=== PATIENT | male | born 1965 | race Caucasian/White ===

== ENCOUNTER → 2016-07-15 | Outpatient (CLI) | payer OTHER ==
[~2016-07-15] MED LIST: ASPI325T PO; AZEL0.1S3; BREO1INH INH; FLON1SPR; GABA600T PO; LEVA12INH INH; LEVA500T PO; NEXI40CA PO; PRED10TA FT; PRED20TA PO; [UNRECOGNIZED DRUG - CODE] PO
--- NOTE | 2016-07-15 19:02 | REP ---
Clinical: Acute cough. Technique: PA and lateral. Comparison: 01/27/2016. Findings: Mediastinum and cardiac silhouette are normal. Trace bibasilar atelectasis noted suggesting bronchitis. No focal consolidation, effusion, or pneumothorax. Skeletal structures are intact and stable. Impression: Trace basilar atelectasis suggesting bronchitis. No focal consolidation. Signed by Tung Sosa MD 07/15/2016 06:54 P
[2016-07-15 20:24] LABS: BASO % 0.2 % (0.0-1.0); EOS % 0.3 % (0.0-3.0); LARGE UNSTAINED CELL # 0.2 K/mm3 (0.0-0.4); LYMPH # 1.2 K/mm3 (1.5-4.5); LYMPH % 14.4 % (24.0-44.0); MEAN CORPUSCULAR HEMOGLOBIN 29.6 pg (27.0-33.0); MEAN CORPUSCULAR HGB CONC 34.1 g/dl (32.0-36.5); MONO # 0.4 K/mm3 (0.0-0.8); MONO % 4.9 % (0.0-5.0); NEUTROPHILS # 6.3 K/mm3 (1.8-7.7); NEUTROPHILS % 78.2 % (36.0-66.0); PLATELET COUNT, AUTOMATED 218 k/mm3 (150-450); RED CELL DISTRIBUTION WIDTH 12.9 % (11.5-14.5)
== END ==
LOC: M WUC 18:33
PROVIDERS: ATTEND Physician Assistant
DX: J98.11 Atelectasis (principal); R50.9 Fever, unspecified; J20.9 Acute bronchitis, unspecified

== ENCOUNTER 2016-07-17 05:42 | Inpatient (IN) | payer OTHER ==
[~2016-07-17] VITALS: Ht 170.2 cm; Wt 91.0 kg
[2016-07-17] MEDS ORDERED: diphenhydrAMINE INJ 50MG/ML VIAL (J1200) As Ordered ONE (06:44)
[2016-07-17] MEDS ORDERED: dexameTHASONE 4 MG/ML 1ML VIAL (J1100) As Ordered ONE (06:44)
[2016-07-17 07:05] LABS: BASO # 0.2 K/mm3 (0.0-0.2); BASO % 3.2 % (0.0-1.0); EOS % 0.5 % (0.0-3.0); LARGE UNSTAINED CELL # 0.4 K/mm3 (0.0-0.4); LARGE UNSTAINED CELL % 5.3 % (0.0-4.0); LYMPH # 1.1 K/mm3 (1.5-4.5); LYMPH % 10.2 % (24.0-44.0); MEAN CORPUSCULAR HEMOGLOBIN 28.3 pg (27.0-33.0); MEAN CORPUSCULAR HGB CONC 33.5 g/dl (32.0-36.5); MEAN CORPUSCULAR VOLUME 84.6 fl (80.0-96.0); MONO # 0.3 K/mm3 (0.0-0.8); MONO % 4.5 % (0.0-5.0); NEUTROPHILS # 5.2 K/mm3 (1.8-7.7); NEUTROPHILS % 76.3 % (36.0-66.0); PLATELET COUNT, AUTOMATED 295 k/mm3 (150-450); RED CELL DISTRIBUTION WIDTH 13.6 % (11.5-14.5); WHITE BLOOD COUNT 6.9 K/mm3 (4.0-10.0)
[2016-07-17 07:25] LABS: ANION GAP 8 MEQ/L (8-16); BLOOD UREA NITROGEN 15 MG/DL (7-18); CALCIUM LEVEL 9.9 MG/DL (8.5-10.1); CARBON DIOXIDE LEVEL 30 MEQ/L (21-32); CHLORIDE LEVEL 104 MEQ/L (98-107); CREATININE FOR GFR 0.94 MG/DL (0.70-1.30); GLOMERULAR FILTRATION RATE > 60.0 (>56); GLUCOSE, FASTING 135 MG/DL (70-105); POTASSIUM SERUM 4.4 MEQ/L (3.5-5.1); SODIUM LEVEL 142 MEQ/L (136-145)
[2016-07-17] MEDS ORDERED: ISOVUE-370 76% 100ML VIAL (Q9967) As Ordered ONE (07:33)
--- NOTE | 2016-07-17 07:54 | REP ---
Clinical: Cough . Comparison: 07/15/2016 . Technique: PA and lateral. Findings: The mediastinum and cardiac silhouette are normal and stable. The lung aguilera again suggest bibasilar atelectasis (left greater than right) and possible small pleural reactions. No definite effusion. No pneumothorax. Skeletal structures stable. Impression: 1. Chronic changes with suspected bibasilar atelectasis and possible small pleural reaction. Signed by Tung Sosa MD 07/17/2016 07:45 A
--- NOTE | 2016-07-17 08:10 | REPUSA ---
CLINICAL HISTORY: Dyspnea, exclude PE. TECHNIQUE: Multiple incremental axial, coronal and oblique images are obtained from the thoracic inle t to the upper abdomen. Intravenous contrast material was administered as per pulmonary embolism prot ocol. COMMENTS: Groundglass densities of the right upper lobe. Right lower lobe consolidation. Bilateral basilar atelectatic lung changes. There is excellent opacification of pulmonary arterial system without evidence for pulmonary embolism . Aorta is of normal caliber without evidence for dissection or aneurysm. There is no evidence of pleural or parenchymal mass. There are no pleural effusions. There is no evidence of hilar or mediastinal lymphadenopathy. The heart and great vessels are within normal limits. Images of the upper abdomen demonstrate no evidence of adrenal mass. The bony structures are free of lytic or blastic lesions. IMPRESSION: No evidence for pulmonary embolism. Bilateral groundglass densities of the lungs. Bilateral basilar atelectatic pulmonary changes. Right lower lobe consolidation. Thank you for your kind referral of this patient.
[2016-07-17] MEDS ORDERED: cefTRIAXone SOD 1 GM VIAL (J0696) As Ordered ONE (08:34)
[2016-07-17] MEDS ORDERED: AZITHROMYCIN INJ 500MG VIAL (J0456) As Ordered ONE (08:35)
[2016-07-17] MEDS ORDERED: ASPI325T PO (08:50)
[2016-07-17] MEDS ORDERED: LEVA12INH INH (08:50)
[2016-07-17] MEDS ORDERED: FLON1SPR (08:50)
[2016-07-17] MEDS ORDERED: PRED20TA PO (08:50)
[2016-07-17] MEDS ORDERED: NEXI40CA PO (08:50)
[2016-07-17] MEDS ORDERED: GABA600T PO (08:50)
[2016-07-17] MEDS ORDERED: AZEL0.1S3 (08:50)
[2016-07-17] MEDS ORDERED: BREO1INH INH (08:50)
[2016-07-17] MEDS ORDERED: [UNRECOGNIZED DRUG - CODE] PO (08:50)
[2016-07-17] MEDS ORDERED: IPRATROPIUM 0.5MG/ALBUTEROL 2.5MG INH SOL UD 3ML (DUONEB)(J7620) NEB PRN (10:15)
[2016-07-17] MEDS ORDERED: ONDANSETRON 4MG/2ML VIAL (J2405) IV PRN (10:15)
[2016-07-17] MEDS ORDERED: diphenhydrAMINE 25 MG CAP PO PRN (10:30)
[2016-07-17] MEDS ORDERED: ACETAMINOPHEN 325 MG TAB As Ordered ONE (12:39)
--- NOTE | 2016-07-17 13:01 | HPEPDOC ---
General Date of Admission Jul 17, 2016 at 10:06 Chief Complaint The patient is a 51-year-old male admitted with a reason for visit of Community Acquired Pneumonia. Source: Patient Exam Limitations: No limitations History of Present Illness 51-year-old male with past medical history of asthma, GERD, and recent surgery for meniscal tear in the right knee resented to the ER with a chief complaint of shortness of breath and increased cough. The patient states that he had surgery last Tuesday for repair of a meniscal tear in his right knee. Since then , the patient states that he has been feeling increasingly short of breath with a fever of 102. He has tried using Tylenol at home and nebulizer treatments [id number] but this has not improved. In addition he has noted a cough productive of whitish sputum. He denies any chest pain, lightheadedness, dizziness, abdominal pain, nausea/vomiting/diarrhea. He denies any recent travel or sick contacts. In the ER, a chest x-ray was ordered and revealed a possible small pleural reaction. A CTA of the chest was done and this was negative for of pulmonary embolus, however it did reveal a right lower lobe consolidation consistent with possible pneumonia. At this time, the patient is requiring 3 L of oxygen via nasal cannula to maintain an O2 saturation above 90%. The patient will be admitted to the hospitalist service for the diagnosis of community-acquired pneumonia. Home Medications Scheduled (Requip Xl) 4 Mg Tab 4 MG PO BID (Reported) NOON AND BEDTIME (Flonase Allergy Relief) 50 Mcg/Act Spr 2 SPRAYS NA QHS (Reported) Aspirin (Aspirin) 325 Mg Tab 325 MG PO DAILY (Reported) Fluticasone/Vilanterol (Breo Ellipta 100-25 Mcg/INH) 1 Inh Inh 1 PUFF INH DAILY (Reported) Gabapentin (Gabapentin) 600 Mg Tab 600 MG PO BID (Reported) NOON AND BEDTIME Levalbuterol Hydrochloride (Xopenex Concentrate) 1.25 Mg/0.5 Ml Neb 1.25 MG INH TID (Reported) Prednisone (Prednisone) 20 Mg Tab 20 MG PO BID (Reported) Scheduled PRN Azelastine Hydrochloride (Azelastine HCl) 137 Mcg/Freehold Spr 1 SPRAY NA BID PRN PRN ALLERGIES (Reported) Esomeprazole Magnesium Trihydr (Nexium) 40 Mg Cap 40 MG PO DAILY PRN PRN HEARTBURN (Reported) Allergies Coded Allergies: Contrast Media (Unverified Allergy, Severe, FEELS LIKE THROATS CLOSING, ) [place] (Verified Adverse Reaction, Intermediate, THROAT ITCHES , 07/17/16) Past Medical History Medical History As noted in HPI Surgical History Repair of meniscal tear in the right knee. Family History Family History Mother has breast cancer, diabetes mellitus. Father has hypertension. Social History * Smoker: non-smoker Alcohol: occationally Drugs: denies Recent Travel/Sick Contacts: Denies: Recent sick contacts, Recent travel Social History Works as a scheduling administrator. Review of Symptoms Constitutional: Reports: Chills, Fever, Malaise Eyes: Denies: Pain, Vision change ENT: Denies: Ear Pain, Head Aches Skin: Denies: Lesions, Rash Pulmonary: Reports: Cough, Dyspnea Cardiovascular: Denies: Chest Pain, Orthopnea, Palpitations Gastrointestinal: Denies: Abdominal Pain, Nausea, Vomiting Genitourinary: Denies: Dysuria, Frequency Hematologic: Denies: Bleeding Excessively, Bruising Neurological: Denies: Numbness, Weakness Physical Examination General Exam: Positive: Alert, Cooperative, No Acute Distress ENT Exam: Positive: Atraumatic, Mucous membr. moist/pink Chest Exam: Positive: Diminished, Negative: Rales, Rhonchi Heart Exam: Positive: Normal S1, Normal S2, Rate Normal Telemetry: Positive: Sinus Abdomen Exam: Positive: Soft, Negative: Tenderness Extremity Exam: Negative: Edema, Tenderness Vital Signs As listed in EMR Laboratory Data Labs 24H Laboratory Tests 2 07/17/16 06:53: Anion Gap 8, Blood Urea Nitrogen 15, Creatinine 0.94, Sodium Level 142, Potassium Level 4.4, Chloride Level 104, Carbon Dioxide Level 30, Calcium Level 9.9, Creatine Kinase MB 1.2, Creatine Kinase MB Relative Index 0.85, Glomerular Filtration Rate > 60.0, Total Creatine Kinase 140, Troponin I < 0.02 07/17/16 06:54: White Blood Count 6.9, Red Blood Count 5.89, Hemoglobin 16.7, Hematocrit 49.9, Mean Corpuscular Volume 84.6, Mean Corpuscular Hemoglobin 28.3, Mean Corpuscular Hemoglobin Concent 33.5, Red Cell Distribution Width 13.6, Platelet Count 295, Neutrophils (%) (Auto) 76.3H, Lymphocytes (%) (Auto) 10.2L, Monocytes (%) (Auto) 4.5, Eosinophils (%) (Auto) 0.5, Basophils (%) (Auto) 3.2H , Neutrophils # (Auto) 5.2, Lymphocytes # (Auto) 1.1L, Monocytes # (Auto) 0.3, Eosinophils # (Auto) 0.0, Basophils # (Auto) 0.2, Large Unclassified Cells # 0.4 , Large Unclassified Cells % 5.3H 07/17/16 08:41: Lactic Acid Level 1.4 CBC/BMP Laboratory Tests 07/17/16 06:53 Calcium Level 9.9 07/17/16 06:54 Red Blood Count 5.89, Mean Corpuscular Volume 84.6, Mean Corpuscular Hemoglobin 28.3, Mean Corpuscular Hemoglobin Concent 33.5, Red Cell Distribution Width 13.6 , Neutrophils (%) (Auto) 76.3 H, Lymphocytes (%) (Auto) 10.2 L, Monocytes (%) ( Auto) 4.5, Eosinophils (%) (Auto) 0.5, Basophils (%) (Auto) 3.2 H, Neutrophils # (Auto) 5.2, Lymphocytes # (Auto) 1.1 L, Monocytes # (Auto) 0.3, Eosinophils # (Auto) 0.0, Basophils # (Auto) 0.2 Microbiology Microbiology 07/17/16 Blood Culture, Received Pending 07/17/16 Blood Culture, Received Pending (1) Community acquired pneumonia Status: Acute Response to Treatment: Stable Assessment & Plan: CTA chest notable for right lower lobe consolidation, negative for PE Blood cultures, sputum culture ordered Afebrile, with a normal white blood cell count here in the ER The patient is requiring 3 L of oxygen via nasal cannula to maintain O2 greater than 90%-we will down titrate this as tolerated Rocephin and azithromycin ordered We will continue to monitor the patient's respiratory status (2) Asthma Status: Acute Response to Treatment: Stable Assessment & Plan: No Active wheezing noted at this time Patient does have some cough associated with deep breathing, and does have some signs of bronchospasms with diminished air movement Status post methylprednisolone 125 mg in the ER We will start the patient on 40 mg of prednisone by mouth Nebulizer treatments every 6 hours (3) Right knee meniscal tear Status: Chronic Response to Treatment: Stable Assessment & Plan: Patient did have surgery done this past Tuesday. We will put him on Lovenox 40 mg subcutaneous for DVT prophylaxis (4) GERD (gastroesophageal reflux disease) Status: Chronic Response to Treatment: Stable Assessment & Plan: Continue PPI (5) Hypoxia Status: Acute Assessment & Plan: Patient requiring 3 L of oxygen via nasal cannula due to community-acquired pneumonia, asthma exacerbation We will continue to down titrate as tolerated. Plan / VTE VTE Prophylaxis Ordered?: Yes CANDELARIO SOUTH MD Jul 17, 2016 13:01
[2016-07-17] MEDS ORDERED: rOPINIRole 1MG TAB PO ONE (13:15)
[2016-07-17] MEDS ORDERED: IPRATROPIUM 0.5MG/ALBUTEROL 2.5MG INH SOL UD 3ML (DUONEB)(J7620) As Ordered ONE (13:18)
[2016-07-17] MEDS: IPRATROPIUM 0.5MG/ALBUTEROL 2.5MG INH SOL UD 3ML (DUONEB)(J7620) NEB SCH ×2 (13:37→19:57)
--- NOTE | 2016-07-17 14:03 | EDDOCDS ---
Nurse's Notes [facility] Name: Richmond Muir Age: 51 yrs Sex: Male : 1965 Arrival Date: 07/17/2016 Time: 05:42 Bed 8 Private MD: Diagnosis: Pneumonia due to other specified bacteria Presentation: 07/17 05:47 Presenting complaint: Patient states: SOB, cough starting Tuesday with fevers, af2 dizziness with coughing, tightening of chest with deep breaths. Adult Sepsis Screening: The patient does not have new or worsening altered mentation. Patient's respiratory rate is less than 22. Systolic blood pressure is greater than 100. Patient has a qSOFA score of 0- Negative Sepsis Screen. Suicide/Homicide risk assessment- the patient denies having any suicidal and/or homicidal ideations and does not present with any other emotional, behavioral or mental health complaints. Status: Patient is not a multicultural services librarian or dependent. Transition of care: patient was not received from another setting of care. 05:47 Acuity: TI Level 3 af2 05:47 Method Of Arrival: Walkin/Carried/Asstd af2 Triage Assessment: 05:53 General: Appears in no apparent distress, Behavior is cooperative. Pain: Denies pain. af2 Pt Declines HIV testing. Respiratory: Airway is patent Respiratory effort is even, unlabored, Reports shortness of breath cough that is. Historical: - Allergies: IVP dye; - Home Meds: 1. aspirin 325 mg Oral tab 1 tab once daily 2. Requip 4 mg Oral tab 1 tab twice a day 3. gabapentin 600 mg Oral tab twice a day 4. Breo daily 5. Xopenex 1.25 mg/3 mL Nebulizer nebu 3 mL 3 times per day 6. prednisone 20 mg Oral tab 1 tab 2 times per day - PMHx: Restless Leg Syndrome; Sleep Apnea w/ CPAP; Hypercholesterolemia; - PSHx: Cystectomy; Hernia repair; foot surg left heel; Right Meniscus; - Social history: Smoking status: Patient states was never smoker of tobacco. No barriers to communication noted, The patient speaks fluent [place]. - Family history: Not pertinent. - : The pt / caregiver states he / she is not on anticoagulants. Home medication list is obtained from the patient. - Exposure Risk Screening:: None identified. Screenin:22 Screening information is obtained from the patient. Fall risk: No risks identified. jp6 Assistance ADL's: requires no assistance with activities of daily living. Abuse/DV Screen: The patient / caregiver reports he/she is: not in a situation that causes fear, pain or injury. Nutritional screening: No deficits noted. Advance Directives: Currently, there is no health care proxy. There is no active DNR order. There is no living will. home support is adequate. Assessment: 06:22 General: Appears in no apparent distress, uncomfortable, well developed, well jp6 nourished, Behavior is appropriate for age, cooperative. Pain: Location: chest Pain currently is 5 out of 10 on a pain scale. Quality of pain is described as aching. Neurological: Level of Consciousness is awake, alert, Oriented to person, place, time. EENT: No deficits noted. Cardiovascular: No deficits noted. Capillary refill < 3 seconds Heart tones S1 S2 present. Respiratory: Airway is patent Respiratory effort is even, unlabored, Respiratory pattern is regular, symmetrical, Breath sounds are clear bilaterally. pt c/o coughing and tightness in chest w/ coughing. GI: No deficits noted. : No deficits noted. Derm: Skin is pale. Musculoskeletal: No deficits noted. 07:32 General: Appears in no apparent distress, comfortable, Behavior is appropriate for age, po cooperative, pleasant. Pain: Location: chest Pain currently is 0 out of 10 on a pain scale. At worst was 4 out of 10 on a pain scale. Quality of pain is described as tightness Is intermittent Aggravated by coughing and deep breathing. Neurological: Level of Consciousness is awake, alert, Oriented to person, place, time. Cardiovascular: Heart tones S1 S2 present Rhythm is regular. Respiratory: Airway is patent Respiratory effort is even, unlabored, Breath sounds are clear bilaterally. Reports pain with cough pain with respiration. GI: No deficits noted. Derm: Skin is intact, is healthy with good turgor, Skin is pink, warm & dry. 07:32 Adult Sepsis Screening: The patient does not have new or worsening altered mentation. po Patient's respiratory rate is less than 22. Systolic blood pressure is greater than 100. Patient has a qSOFA score of 0- Negative Sepsis Screen. 08:25 General: Appears in no apparent distress, comfortable, Behavior is appropriate for age, po cooperative, pleasant. Pain: Pain currently is 0 out of 10 on a pain scale. At worst was 4 out of 10 on a pain scale. Neurological: No deficits noted. Cardiovascular: Rhythm is sinus rhythm. Respiratory: Airway is patent Respiratory effort is even, unlabored, Reports pain with cough pain with respiration. Derm: Skin is pink, warm & dry. 09:35 General: Appears in no apparent distress, comfortable, Behavior is appropriate for age, po cooperative, pleasant. Pain: Denies pain. Neurological: No deficits noted. Respiratory: Airway is patent Respiratory effort is even, unlabored, Breath sounds are clear bilaterally. Reports pain with cough pain with respiration. Derm: Skin is intact, is healthy with good turgor, Skin is pink, warm & dry. 09:35 Adult Sepsis Screening: The patient does not have new or worsening altered mentation. po Patient's respiratory rate is less than 22. Systolic blood pressure is greater than 100. Patient has a qSOFA score of 0- Negative Sepsis Screen. 10:36 General: Appears in no apparent distress, comfortable, Behavior is appropriate for age, po cooperative, pleasant. Pain: Denies pain. Neurological: No deficits noted. Respiratory: Airway is patent Respiratory effort is even, unlabored, Breath sounds are clear bilaterally. GI: No deficits noted. Derm: Skin is pink, warm & dry. 11:32 General: Appears in no apparent distress, comfortable, Behavior is appropriate for age, po cooperative, pleasant. Pain: Denies pain. Neurological: No deficits noted. Cardiovascular: Rhythm is sinus rhythm. Cardiovascular: Rhythm is sinus rhythm. Respiratory: Airway is patent Respiratory effort is even, unlabored. Derm: Skin is pink, warm & dry. 11:32 Adult Sepsis Screening: The patient does not have new or worsening altered mentation. po Patient's respiratory rate is less than 22. Systolic blood pressure is greater than 100. Patient has a qSOFA score of 0- Negative Sepsis Screen. 12:25 General: Appears in no apparent distress, comfortable, Behavior is appropriate for age, po cooperative, pleasant. Pain: Denies pain. Neurological: No deficits noted. Respiratory: Airway is patent Respiratory effort is even, unlabored. Derm: Skin is pink, warm & dry. 13:26 General: Appears in no apparent distress, comfortable, Behavior is appropriate for age, po cooperative, pleasant. Pain: Denies pain. Neurological: Level of Consciousness is awake, alert, Oriented to person, place, time. Cardiovascular: Rhythm is sinus rhythm. Respiratory: Airway is patent Respiratory effort is even, unlabored, Breath sounds are clear bilaterally. Reports pain with cough pain with respiration. Derm: Skin is pink, warm & dry. 13:26 Adult Sepsis Screening: The patient does not have new or worsening altered mentation. po Patient's respiratory rate is less than 22. Systolic blood pressure is greater than 100. Patient has a qSOFA score of 0- Negative Sepsis Screen. 13:53 General: Appears in no apparent distress, comfortable, Behavior is appropriate for age, po cooperative, pleasant. Pain: Denies pain. Neurological: No deficits noted. Cardiovascular: Rhythm is sinus rhythm. Respiratory: Airway is patent Respiratory effort is even, unlabored. GI: No deficits noted. Derm: Skin is intact, is healthy with good turgor, Skin is pink, warm & dry. Vital Signs: 05:46 BP 169 / 99 RA Sitting; Pulse 102; Resp 18 S; Temp 96.9(O); Pulse Ox 93% on R/A; Weight af2 90.72 kg (R); Height 5 ft. 7 in. (170.18 cm) (R); 06:56 BP 143 / 102; Pulse 90; Resp 18; Pulse Ox 91% on R/A; Pain 2/10; jp6 07:19 BP 148 / 101 (auto/); po 07:20 Pulse 92 MON; Resp 20; Pulse Ox 92% on 2 lpm NC; po 08:19 BP 139 / 92 (auto/); po 08:19 Pulse 90 MON; Resp 20; Pulse Ox 91% on 2 lpm NC; Pain 0/10; po 09:19 BP 127 / 94 (auto/); po 09:19 Pulse 82 MON; Resp 18; Pulse Ox 91% on 2 lpm NC; Pain 0/10; po 11:19 BP 147 / 92 (auto/); rs3 11:19 Pulse 80 MON; Pulse Ox 91% ; rs3 11:48 BP 142 / 96 (auto/); rs3 11:49 Pulse 80 MON; Pulse Ox 91% ; rs3 12:03 BP 121 / 86 (auto/); po 12:04 Pulse 84 MON; Pulse Ox 89% ; po 12:18 BP 131 / 87 (auto/); rs3 12:20 Pulse 84 MON; Pulse Ox 90% ; rs3 12:33 BP 127 / 85 (auto/); rs3 12:34 Pulse 84 MON; Pulse Ox 90% ; rs3 12:48 BP 125 / 76 (auto/); rs3 12:49 BP 125 / 76; Pulse 86 MON; Resp 18; Pulse Ox 92% on R/A; Pain 0/10; rs3 13:18 BP 143 / 91 (auto/); po 13:19 Pulse 90 MON; Pulse Ox 89% ; po 13:51 BP 146 / 88; Pulse 94 MON; Resp 18; Temp 96.9(O); Pulse Ox 93% on 2 lpm NC; Pain 0/10; po 05:46 Body Mass Index 31.32 (90.72 kg, 170.18 cm) af2 Vitals: 05:46 Log In Time: July 17, 2016 at 05:44. af2 ED Course: 05:44 Patient visited by Qi Pappas Reg. hs2 05:44 Patient moved to Waiting hs2 05:49 Triage Initiated af2 05:53 Patient visited by Keyla Ojeda RN. af2 05:53 Patient moved to 8 af2 06:06 Cristian Tafoya DO is Attending Physician. cs11 06:06 Patient visited by Cristian Tafoya DO. cs11 06:14 Viktoriya Galarza RN is Primary Nurse. jp6 06:14 Patient visited by Viktoriya Galarza RN. jp6 06:22 The patient / caregiver is instructed regarding the plan of care and ED course. jp6 06:23 [facility] [place] Agreement was scanned into [employer] and attached to record. pm4 06:55 Inserted saline lock: 18 gauge in right antecubital area and blood collected. Labs jp6 drawn. (by ED staff). Sent per order to lab. 06:59 Attending Physician role handed off by Cristian Tafoya DO sd1 06:59 Merced Trejo MD is Attending Physician. sd1 07:09 Primary Nurse role handed off by Viktoriya Galarza,EVY deg 07:20 Placed in gown. Bed in low position. Call light in reach. Side rails up X 1. po 07:20 IV is patent, is intact, is free of redness or swelling. po 07:28 Jamal Moran,RN is Primary Nurse. po 07:37 Patient visited by Jamal Moran,EVY. po 07:58 EKG done. (by ED staff). Reviewed by Merced Trejo MD. jrd 08:05 Chest, 2 View (pa\E\lat) Returned. EDMS 08:08 Patient visited by John Mercado PCA. jrd 08:43 Lactic Acid (Yuan tube on ice) Sent. jrd 08:43 -Blood Culture Sent. jrd 08:46 CT Chest Angio R/O PE Returned. EDMS 09:15 Tavo Santos is Hospitalizing Provider. sd1 10:04 Patient visited by Jamal Moran,EVY. po 10:38 T-Sheet-- Draft Copy was scanned into [employer] and attached to record. seh 13:19 Patient visited by Yamilex Brown RN. rs3 13:33 Patient visited by Jamal Moran,EVY. po 13:51 Pt visited by . po 13:51 IV is patent, is intact, is free of redness or swelling. with fluids infusing freely. po No procedures done that require assistance. 13:56 Patient visited by Jamal Moran RN. po Administered Medications: 06:55 Drug: diphenhydrAMINE 25 mg [diphenhydramine 50 mg/mL injection solution (0.5 mL)] jp6 Route: IVP; Site: right antecubital; 06:55 Drug: Dexamethasone 6 mg [dexamethasone 4 mg/mL injection solution] Route: IV; Rate: jp6 bolus; Site: right antecubital; 08:59 Drug: NS 0.9% 1000 ml [sodium chloride 0.9 % injection solution] Route: IV; Rate: 150 po mL/hr; Site: right antecubital; 13:51 Follow up: IV Status: Infusion continued upon admit; IV Intake: 500ml po 08:59 Drug: cefTRIAXone 1 grams [ceftriaxone 1 gram solution for injection] Route: IVPB; po Infused Over: 30 mins; Site: right antecubital; 09:34 Follow up: IV Status: Completed infusion; IV Intake: 50ml po 09:34 Drug: azithromycin 500 mg [azithromycin 500 mg intravenous solution] Route: IVPB; po Infused Over: 1 hrs; Site: right antecubital; 10:36 Follow up: IV Status: Completed infusion; IV Intake: 250ml po 13:02 Not Given (Duplicate Order): Requip 4 mg PO now rs3 13:05 Drug: Acetaminophen 650 mg [acetaminophen 325 mg tablet (2 tabs)] Route: PO; rs3 13:19 Drug: Gabapentin 600 mg [gabapentin 100 mg capsule (6 caps)] Route: PO; rs3 13:19 Drug: Requip 2.5 mg Route: PO; rs3 Intake: 09:34 IV: 50.00ml; Total: 50.00ml. po 10:36 IV: 250.00ml; Total: 300.00ml. po 13:51 IV: 500.00ml; Total: 800.00ml. po Order Results: Lab Order: CBC with Diff; SPEC'M 07/17/16 06:54 Test: WHITE BLOOD COUNT; Value: 6.9; Range: 4.0-10.0; Units: K/mm3; Status: F Test: RED BLOOD COUNT; Value: 5.89; Range: 4.30-6.10; Units: M/mm3; Status: F Test: HEMOGLOBIN; Value: 16.7; Range: 14.0-18.0; Units: g/dl; Status: F Test: HEMATOCRIT; Value: 49.9; Range: 42.0-52.0; Units: %; Status: F Test: MEAN CORPUSCULAR VOLUME; Value: 84.6; Range: 80.0-96.0; Units: fl; Status: F Test: MEAN CORPUSCULAR HEMOGLOBIN; Value: 28.3; Range: 27.0-33.0; Units: pg; Status: F Test: MEAN CORPUSCULAR HGB CONC; Value: 33.5; Range: 32.0-36.5; Units: g/dl; Status: F Test: RED CELL DISTRIBUTION WIDTH; Value: 13.6; Range: 11.5-14.5; Units: %; Status: F Test: PLATELET COUNT, AUTOMATED; Value: 295; Range: 150-450; Units: k/mm3; Status: F Test: NEUTROPHILS %; Value: 76.3; Range: 36.0-66.0; Abnormal: Above high normal; Units: %; Status: F Test: LYMPH %; Value: 10.2; Range: 24.0-44.0; Abnormal: Below low normal; Units: %; Status: F Test: MONO %; Value: 4.5; Range: 0.0-5.0; Units: %; Status: F Test: EOS %; Value: 0.5; Range: 0.0-3.0; Units: %; Status: F Test: BASO %; Value: 3.2; Range: 0.0-1.0; Abnormal: Above high normal; Units: %; Status: F Test: LARGE UNSTAINED CELL %; Value: 5.3; Range: 0.0-4.0; Abnormal: Above high normal; Units: %; Status: F Test: NEUTROPHILS #; Value: 5.2; Range: 1.8-7.7; Units: K/mm3; Status: F Test: LYMPH #; Value: 1.1; Range: 1.5-4.5; Abnormal: Below low normal; Units: K/mm3; Status: F Test: MONO #; Value: 0.3; Range: 0.0-0.8; Units: K/mm3; Status: F Test: EOS #; Value: 0.0; Range: 0.0-0.50; Units: K/mm3; Status: F Test: BASO #; Value: 0.2; Range: 0.0-0.2; Units: K/mm3; Status: F Test: LARGE UNSTAINED CELL #; Value: 0.4; Range: 0.0-0.4; Units: K/mm3; Status: F Lab Order: [facility]; [facility]' 07/17/16 06:53 Test: GLUCOSE, FASTING; Value: 135; Range: 70-105; Abnormal: Above high normal; Units: MG/DL; Status: F Test: BLOOD UREA NITROGEN; Value: 15; Range: 7-18; Units: MG/DL; Status: F Test: CREATININE FOR GFR; Value: 0.94; Range: 0.70-1.30; Units: MG/DL; Status: F Test: GLOMERULAR FILTRATION RATE; Value: > 60.0; Range: >56; Status: F Test: SODIUM LEVEL; Value: 142; Range: 136-145; Units: MEQ/L; Status: F Test: POTASSIUM SERUM; Value: 4.4; Range: 3.5-5.1; Units: MEQ/L; Status: F Test: CHLORIDE LEVEL; Value: 104; Range: 98-107; Units: MEQ/L; Status: F Test: CARBON DIOXIDE LEVEL; Value: 30; Range: 21-32; Units: MEQ/L; Status: F Test: ANION GAP; Value: 8; Range: 8-16; Units: MEQ/L; Status: F Test: CALCIUM LEVEL; Value: 9.9; Range: 8.5-10.1; Units: MG/DL; Status: F Test Note: ; Units are mL/min/1.73 m2 Chronic Kidney Disease Staging per NKF: Stage I & II GFR >=60 Normal to Mildly Decreased Stage III GFR 30-59 Moderately Decreased Stage IV GFR 15-29 Severely Decreased Stage V GFR <15 Very Little GFR Left ESRD GFR <15 on GROVE SUPERINTENDENT Lab Order: CIP; SPEC'M 07/17/16 06:53 Test: CPK CREATINE PHOSPHOKINASE; Value: 140; Range: 39-308; Units: U/L; Status: F Test: CK-MB VALUE MASS; Value: 1.2; Range: 0.0-3.6; Units: NG/ML; Status: F Test: MB/CK RELATIVE INDEX; Value: 0.85; Range: < OR =4; Status: F Test Note: ; DIAGNOSIS CRITERIA MMB ng/ml Relative Index (RI) NON-AMI < or = 5 N/A YUAN ZONE > 5 < or = 4 AMI > 5 > 4 Lab Order: Troponin; SPEC'M 07/17/16 06:53 Test: TROPONIN I; Value: < 0.02; Range: < 0.10; Units: NG/ML; Status: F Test Note: ; Troponin I Reference Interval for [employer] LOCI: 99th Percentile= 0.00-0.045 ng/ml Risk Stratification: <= 0.10 ng/ml Decreased Risk for Adverse Clinical Events. 0.10-1.50 ng/ml Increased Risk for Adverse Clinical Events. Evaluation of additional criterion and/or repeat testing in 2-6 hours is suggested to rule out myocardial damage. >= 1.50 ng/ml Indicative of Myocardial Injury. Lab Order: Lactic Acid (Yuan tube on ice); SPEC'M 07/17/16 08:41 Test: LACTIC ACID LEVEL, LACTATE; Value: 1.4; Range: 0.4-2.0; Units: MMOL/L; Status: F Radiology Order: Chest, 2 View (pa\E\lat) Test: Chest, 2 View (pa\E\lat) REASON FOR EXAMINATION: Cough; Clinical: Cough .; ; Comparison: 07/15/2016 .; ; Technique: PA and lateral.; ; Findings:; The mediastinum and cardiac silhouette are normal and stable. The lung aguilera; again suggest bibasilar atelectasis (left greater than right) and possible small; pleural reactions. No definite effusion. No pneumothorax. Skeletal structures; stable.; ; Impression:; 1. Chronic changes with suspected bibasilar atelectasis and possible small; pleural reaction.; ; ; Signed by; Tung Sosa MD 07/17/2016 07:45 A; Radiology Order: CT Chest Angio R/O PE Test: CT Chest Angio R/O PE REASON FOR EXAMINATION: Shortness of Breath; ; CLINICAL HISTORY: Dyspnea, exclude PE.; TECHNIQUE: Multiple incremental axial, coronal and oblique images are obtained from the thoracic inle; t to the upper abdomen. Intravenous contrast material was administered as per pulmonary embolism prot; ocol.; COMMENTS:; Groundglass densities of the right upper lobe.; Right lower lobe consolidation.; Bilateral basilar atelectatic lung changes.; There is excellent opacification of pulmonary arterial system without evidence for pulmonary embolism; . Aorta is of normal caliber without evidence for dissection or aneurysm.; There is no evidence of pleural or parenchymal mass.; There are no pleural effusions.; There is no evidence of hilar or mediastinal lymphadenopathy.; The heart and great vessels are within normal limits.; Images of the upper abdomen demonstrate no evidence of adrenal mass.; The bony structures are free of lytic or blastic lesions.; IMPRESSION:; No evidence for pulmonary embolism.; Bilateral groundglass densities of the lungs.; Bilateral basilar atelectatic pulmonary changes.; Right lower lobe consolidation.; Thank you for your kind referral of this patient.; ; Outcome: 09:15 Decision to Hospitalize by Provider. sd1 13:51 Discharge Assessment: patient administered narcotics - no. The following High Risk po Discharge criteria are identified: None. Admitted to Med/Surg accompanied by tech, family with patient, via stretcher, with oxygen, with chart. Condition: stable. CT Study completed. Property :Personal belongings accompany Pt. 14:02 Patient left the ED. po Signatures: Dispatcher [employer] EDMS Merced Trejo MD MD sd1 Jennifer Srinivasan, Band Attacher Unit deg Jamal Moarn RN RN po Soosairaj, Rosemary, RN RN rs3 Cristian Tafoya, DO DO cs11 John Mercado, MACHINE SPREADER MACHINE SPREADER Keyla AndersonRN RN af2 Qi Pappas, Reg Reg hs2 Viktoriya Galarza,RN RN jp6 Merced Reagan Paul, Reg Reg pm4 CATRACHITA
--- NOTE | 2016-07-17 14:03 | EDDOCDS ---
Physician Documentation [facility] Name: Richmond Muir Age: 51 yrs Sex: Male : 1965 Arrival Date: 07/17/2016 Time: 05:42 Bed 8 Private MD: Disposition: 07/17/16 09:15 Hospitalization ordered by Tavo Santos for Inpatient Admission. Preliminary diagnosis is Pneumonia due to other specified bacteria. - Bed requested for 4 Kenneth. - Status is Inpatient Admission. po - Condition is Stable. - Problem is new. - Symptoms are unchanged. Historical: - Allergies: IVP dye; - Home Meds: 1. aspirin 325 mg Oral tab 1 tab once daily 2. Requip 4 mg Oral tab 1 tab twice a day 3. gabapentin 600 mg Oral tab twice a day 4. Breo daily 5. Xopenex 1.25 mg/3 mL Nebulizer nebu 3 mL 3 times per day 6. prednisone 20 mg Oral tab 1 tab 2 times per day - PMHx: Restless Leg Syndrome; Sleep Apnea w/ CPAP; Hypercholesterolemia; - PSHx: Cystectomy; Hernia repair; foot surg left heel; Right Meniscus; - Social history: Smoking status: Patient states was never smoker of tobacco. No barriers to communication noted, The patient speaks fluent Thai. - Family history: Not pertinent. - : The pt / caregiver states he / she is not on anticoagulants. Home medication list is obtained from the patient. - Exposure Risk Screening:: None identified. Vital Signs: 07/17 05:46 BP 169 / 99 RA Sitting; Pulse 102; Resp 18 S; Temp 96.9(O); Pulse Ox 93% on R/A; Weight af2 90.72 kg / 200 lbs (R); Height 5 ft. 7 in. (170.18 cm) (R); 06:56 BP 143 / 102; Pulse 90; Resp 18; Pulse Ox 91% on R/A; Pain 2/10; jp6 07:19 BP 148 / 101 (auto/); po 07:20 Pulse 92 MON; Resp 20; Pulse Ox 92% on 2 lpm NC; po 08:19 BP 139 / 92 (auto/); po 08:19 Pulse 90 MON; Resp 20; Pulse Ox 91% on 2 lpm NC; Pain 0/10; po 09:19 BP 127 / 94 (auto/); po 09:19 Pulse 82 MON; Resp 18; Pulse Ox 91% on 2 lpm NC; Pain 0/10; po 11:19 BP 147 / 92 (auto/); rs3 11:19 Pulse 80 MON; Pulse Ox 91% ; rs3 11:48 BP 142 / 96 (auto/); rs3 11:49 Pulse 80 MON; Pulse Ox 91% ; rs3 12:03 BP 121 / 86 (auto/); po 12:04 Pulse 84 MON; Pulse Ox 89% ; po 12:18 BP 131 / 87 (auto/); rs3 12:20 Pulse 84 MON; Pulse Ox 90% ; rs3 12:33 BP 127 / 85 (auto/); rs3 12:34 Pulse 84 MON; Pulse Ox 90% ; rs3 12:48 BP 125 / 76 (auto/); rs3 12:49 BP 125 / 76; Pulse 86 MON; Resp 18; Pulse Ox 92% on R/A; Pain 0/10; rs3 13:18 BP 143 / 91 (auto/); po 13:19 Pulse 90 MON; Pulse Ox 89% ; po 13:51 BP 146 / 88; Pulse 94 MON; Resp 18; Temp 96.9(O); Pulse Ox 93% on 2 lpm NC; Pain 0/10; po 05:46 Body Mass Index 31.32 (90.72 kg, 170.18 cm) af2 MDM: 06:07 Chest, 2 View (pa\E\lat) Ordered. EDMS 06:17 IV Saline Lock ordered. cs11 06:18 CBC with Diff Ordered. EDMS 06:18 MED Profile Ordered. EDMS 06:19 CT Chest Angio R/O PE Ordered. EDMS 06:21 Financial registration complete. pm4 06:[address] [facility] Payment Agreement was scanned into [employer] ??? and attached to record. pm4 06:39 diphenhydrAMINE 25 mg IVP once ordered. cs11 06:39 Dexamethasone 6 mg IV at bolus once ordered. cs11 07:31 CBC with Diff Reviewed. sd1 07:31 MED Profile Reviewed. sd1 07:32 ECG WITH READING ER PHYS+CARDIAG ordered. EDMS 07:32 CIP Ordered. EDMS 07:32 Troponin Ordered. EDMS 08:16 CIP Reviewed. sd1 08:16 Troponin Reviewed. sd1 08:16 Chest, 2 View (pa\E\lat) Reviewed. sd1 08:22 -Blood Culture (Adults Only), peripheral from different site, or from device/port/PICC sd1 etc. if present ordered. 08:22 -Blood Culture Ordered. EDMS 08:23 Lactic Acid (Yuan tube on ice) Ordered. EDMS 08:24 BED REQUEST+ADM ordered. EDMS 08:24 NS 0.9% 1000 ml IV at 150 mL/hr continuous ordered. sd1 08:24 cefTRIAXone 1 grams IVPB once over 30 mins; dilute in 50mL of NS or D5W ordered. sd1 08:24 azithromycin 500 mg IVPB once over 1 hrs; dilute in 250mL of D5W or NS ordered. sd1 08:26 -Blood Culture (Adults Only), peripheral from different site, or from device/port/PICC deg etc. if present complete. 08:27 BLOOD CULTURES Ordered. EDMS 10:19 SPUTUM CULTURE AND GRAM STAIN Ordered. EDMS 10:21 Admission / Observation Status ordered. EDMS 10:21 REGULAR DIET ordered. EDMS 10:38 T-Sheet-- Draft Copy was scanned into [employer] ??? and attached to record. seh 12:46 Requip 4 mg PO now ordered. rs3 12:46 Gabapentin 600 mg PO once ordered. rs3 13:04 Acetaminophen Tablet 650 mg PO once ordered. rs3 13:04 Requip 2.5 mg PO now ordered. rs3 Administered Medications: 06:55 Drug: diphenhydrAMINE 25 mg [diphenhydramine 50 mg/mL injection solution (0.5 mL)] jp6 Route: IVP; Site: right antecubital; 06:55 Drug: Dexamethasone 6 mg [dexamethasone 4 mg/mL injection solution] Route: IV; Rate: jp6 bolus; Site: right antecubital; 08:59 Drug: NS 0.9% 1000 ml [sodium chloride 0.9 % injection solution] Route: IV; Rate: 150 po mL/hr; Site: right antecubital; 13:51 Follow up: IV Status: Infusion continued upon admit; IV Intake: 500ml po 08:59 Drug: cefTRIAXone 1 grams [ceftriaxone 1 gram solution for injection] Route: IVPB; po Infused Over: 30 mins; Site: right antecubital; 09:34 Follow up: IV Status: Completed infusion; IV Intake: 50ml po 09:34 Drug: azithromycin 500 mg [azithromycin 500 mg intravenous solution] Route: IVPB; po Infused Over: 1 hrs; Site: right antecubital; 10:36 Follow up: IV Status: Completed infusion; IV Intake: 250ml po 13:02 Not Given (Duplicate Order): Requip 4 mg PO now rs3 13:05 Drug: Acetaminophen 650 mg [acetaminophen 325 mg tablet (2 tabs)] Route: PO; rs3 13:19 Drug: Gabapentin 600 mg [gabapentin 100 mg capsule (6 caps)] Route: PO; rs3 13:19 Drug: Requip 2.5 mg Route: PO; rs3 Signatures: Dispatcher [employer] EDHI Merced Trejo MD MD sd1 Jennifer Srinivasan, Solid Waste Analyst Unit deg Jamal Moran RN RN po Youngs, David RN EVY dy Yamilex Brown RN RN rs3 Cristian Tafoya, DO cs11 Keyla Ojeda RN RN af2 Viktoriya GalarzaRN RN 6 Merced Reagan Paul, Reg Reg pm4 The chart was reviewed and I authenticate all verbal orders and agree with the evaluation and treatment provided.Attachments: 06:[address] Payment Agreement pm4 10:38 T-Sheet-- Draft Copy [facility] MTDD
[2016-07-17 14:05] VITALS: BP 148/90
[2016-07-17] MEDS: GABAPENTIN 300 MG CAP PO SCH ×2 (14:15→20:17)
[2016-07-17] MEDS: ENOXAPARIN 40 MG/0.4 ML SYRINGE (J1650) SC SCH (14:28)
[2016-07-17] MEDS: PANTOPRAZOLE 40MG TAB (PROTONIX) PO SCH (14:28)
[2016-07-17] MEDS: predniSONE 20 MG TAB PO SCH (14:28)
[2016-07-17] MEDS: FLUTICASONE PROP 0.05% NASAL SPRAY 16 GM (FLONASE) SCH (20:16)
[2016-07-17] MEDS: rOPINIRole 1MG TAB PO SCH (20:17)
[2016-07-17] MEDS: cefTRIAXone SOD 1 GM in D5W MINI-BAG PLUS 50 ML IV SCH (20:18)
[2016-07-17 22:00] VITALS: BP 133/84
[2016-07-17 22:15] VITALS: BP 141/96
[2016-07-18] MEDS: IPRATROPIUM 0.5MG/ALBUTEROL 2.5MG INH SOL UD 3ML (DUONEB)(J7620) NEB SCH ×4 (02:00→19:33)
[2016-07-18 04:00] VITALS: BP 132/89
[2016-07-18] MEDS: ACETAMINOPHEN TAB 650MG DOSE (2X325MG) PO PRN ×2 (06:49→17:48)
[2016-07-18 06:56] LABS: MEAN CORPUSCULAR HEMOGLOBIN 29.2 pg (27.0-33.0); MEAN CORPUSCULAR HGB CONC 33.9 g/dl (32.0-36.5); MEAN CORPUSCULAR VOLUME 86.2 fl (80.0-96.0); RED CELL DISTRIBUTION WIDTH 12.6 % (11.5-14.5); WHITE BLOOD COUNT 11.7 K/mm3 (4.0-10.0)
[2016-07-18 07:15] LABS: ANION GAP 8 MEQ/L (8-16); BLOOD UREA NITROGEN 19 MG/DL (7-18); CALCIUM LEVEL 9.1 MG/DL (8.5-10.1); CARBON DIOXIDE LEVEL 28 MEQ/L (21-32); CHLORIDE LEVEL 106 MEQ/L (98-107); CREATININE FOR GFR 0.93 MG/DL (0.70-1.30); GLOMERULAR FILTRATION RATE > 60.0 (>56); GLUCOSE, FASTING 126 MG/DL (70-105); POTASSIUM SERUM 4.1 MEQ/L (3.5-5.1); SODIUM LEVEL 142 MEQ/L (136-145)
--- NOTE | 2016-07-18 07:21 | ECGEPIP ---
Stationary ECG Study [facility] - ED Test Date: 2016-07-17 Pat Name: NAIMA ROMERO Department: Room: [place] [address] Gender: M Mail Clerk Bills: xavier : 1965 Requested By: Merced Trejo Order Number: [id number] Reading MD: Merced Trejo Measurements Intervals Power Rate: 86 P: 46 VT: 162 QRS: -1 QRSD: 88 T: -6 QT: 334 QTc: 401 Interpretive Statements SINUS RHYTHM MODERATE VOLTAGE CRITERIA FOR LVH, CONSIDER NORMAL VARIANT ?PRIOR INFERIOR INFARCT NO PRIOR FOR COMPARISON Electronically Signed On 07-18-2016 7:21:20 EST by Merced Trejo
[2016-07-18 08:00] VITALS: BP 133/88
[2016-07-18] MEDS: cefTRIAXone SOD 1 GM in D5W MINI-BAG PLUS 50 ML IV SCH ×2 (08:33→20:56)
[2016-07-18] MEDS: PANTOPRAZOLE 40MG TAB (PROTONIX) PO SCH (08:33)
[2016-07-18] MEDS: predniSONE 20 MG TAB PO SCH (08:34)
[2016-07-18] MEDS: rOPINIRole 1MG TAB PO SCH ×3 (08:34→20:55)
[2016-07-18] MEDS: ENOXAPARIN 40 MG/0.4 ML SYRINGE (J1650) SC SCH (08:35)
[2016-07-18] MEDS ORDERED: AZITHROMYCIN 500 MG, VIAL MATE ADAPTER 1 EACH in D5W 250 ML IV SCH (10:00)
--- NOTE | 2016-07-18 11:56 | IPNPDOC ---
Assessment/Plan Date Seen The patient was seen on 07/18/16. Problems Problems: (1) Community acquired pneumonia Status: Acute Response to Treatment: Improving Problem Text: CTA chest notable for right lower lobe consolidation, negative for PE Blood cultures unrevealing thus far, sputum culture pending Afebrile, with a normal white blood cell count Supplemental oxygen down titrated from 3 L via nasal cannula to 1 L this morning -we will attempt to taper the patient off altogether Continue Rocephin and azithromycin We will continue to monitor the patient's respiratory status (2) Asthma Status: Acute Response to Treatment: Improving Problem Text: No Active wheezing noted at this time Patient on 40 mg of prednisone by mouth Nebulizer treatments every 6 hours Respiratory status improved today, patient able to take a deep breath without coughing-less bronchospastic with better air movement on exam (3) Right knee meniscal tear Status: Chronic Response to Treatment: Stable Problem Text: Patient did have surgery done this past Tuesday. We will put him on Lovenox 40 mg subcutaneous for DVT prophylaxis (4) GERD (gastroesophageal reflux disease) Status: Chronic Response to Treatment: Stable Problem Text: Continue PPI (5) Hypoxia Status: Acute Response to Treatment: Improving Problem Text: Patient down to 1 L of oxygen via nasal cannula-previously was on 3 L Plan / VTE VTE Prophylaxis Ordered?: Yes Subjective Review of Systems CC/HPI The patient is a 51-year-old male admitted with a reason for visit of Community Acquired Pneumonia. General: Denies: Chills, Night Sweats Constitutional: Denies: Chills, Fever, Malaise Eyes: Denies: Pain, Vision change ENT: Denies: Ear Pain, Head Aches Skin: Denies: Lesions, Rash Pulmonary: Reports: Cough, Denies: Dyspnea Cardiovascular: Denies: Chest Pain, Palpitations Gastrointestinal: Denies: Abdominal Pain, Nausea, Vomiting Hematologic: Denies: Bleeding Excessively, Bruising Objective Physical Examination General Exam: Positive: Alert, Cooperative, No Acute Distress ENT Exam: Positive: Atraumatic, Mucous membr. moist/pink Chest Exam: Positive: Clear to auscultation, Diminished, Negative: Rales, Rhonchi, Wheezing Heart Exam: Positive: Normal S1, Normal S2, Rate Normal Telemetry: Positive: Sinus Abdomen Exam: Positive: Soft, Negative: Tenderness Extremity Exam: Negative: Edema, Tenderness Vital Signs/I&O Vital Signs Date Time Temp Pulse Resp B/P Pulse Ox O2 Delivery O2 Flow Rate FiO2 07/18/16 08:00 96.5 85 20 133/88 92 Nasal Cannula 2.0 I&O- Last 24 Hours up to 6 AM 07/18/16 06:00 Intake Total 800 ml Output Total 675 ml Balance 125 ml Laboratory Data Labs 24H Laboratory Tests 2 07/18/16 06:41: Anion Gap 8, Blood Urea Nitrogen 19H, Creatinine 0.93, Sodium Level 142, Potassium Level 4.1, Chloride Level 106, Carbon Dioxide Level 28, Calcium Level 9.1, Glomerular Filtration Rate > 60.0 CBC/BMP Laboratory Tests 07/18/16 06:41 Calcium Level 9.1, Red Blood Count 5.16, Mean Corpuscular Volume 86.2, Mean Corpuscular Hemoglobin 29.2, Mean Corpuscular Hemoglobin Concent 33.9, Red Cell Distribution Width 12.6 Microbiology Microbiology 07/17/16 Blood Culture - Preliminary, Resulted No growth after 24 hours . All specim... 07/17/16 Blood Culture - Preliminary, Resulted No growth after 24 hours . All specim... CANDELARIO SOUTH MD Jul 18, 2016 11:56
[2016-07-18 12:00] VITALS: BP 136/88
[2016-07-18] MEDS: GABAPENTIN 300 MG CAP PO SCH ×2 (12:12→20:55)
[2016-07-18 16:00] VITALS: BP 148/89
[2016-07-18 20:00] VITALS: BP 133/80
[2016-07-18] MEDS: FLUTICASONE PROP 0.05% NASAL SPRAY 16 GM (FLONASE) SCH (20:55)
[2016-07-19] MEDS: IPRATROPIUM 0.5MG/ALBUTEROL 2.5MG INH SOL UD 3ML (DUONEB)(J7620) NEB SCH ×2 (01:15→07:58)
[2016-07-19] MEDS: ACETAMINOPHEN TAB 650MG DOSE (2X325MG) PO PRN (01:30)
[2016-07-19 04:00] VITALS: BP 134/85
[2016-07-19 07:03] LABS: MEAN CORPUSCULAR VOLUME 85.9 fl (80.0-96.0); RED CELL DISTRIBUTION WIDTH 12.6 % (11.5-14.5); WHITE BLOOD COUNT 8.4 K/mm3 (4.0-10.0)
[2016-07-19 07:23] LABS: BLOOD UREA NITROGEN 25 MG/DL (7-18); CALCIUM LEVEL 9.1 MG/DL (8.5-10.1); CHLORIDE LEVEL 105 MEQ/L (98-107); CREATININE FOR GFR 0.95 MG/DL (0.70-1.30); POTASSIUM SERUM 3.8 MEQ/L (3.5-5.1); SODIUM LEVEL 143 MEQ/L (136-145)
[2016-07-19 07:28] LABS: GLUCOSE, FASTING 110 MG/DL (70-105)
[2016-07-19 08:00] VITALS: BP 163/81
[2016-07-19] MEDS: cefTRIAXone SOD 1 GM in D5W MINI-BAG PLUS 50 ML IV SCH (09:35)
[2016-07-19] MEDS: PANTOPRAZOLE 40MG TAB (PROTONIX) PO SCH (09:36)
[2016-07-19] MEDS: rOPINIRole 1MG TAB PO SCH (09:36)
[2016-07-19] MEDS: ENOXAPARIN 40 MG/0.4 ML SYRINGE (J1650) SC SCH (09:36)
[2016-07-19] MEDS: predniSONE 20 MG TAB PO SCH (09:36)
[2016-07-19 09:43] LABS: ANION GAP 8 MEQ/L (8-16); CARBON DIOXIDE LEVEL 30 MEQ/L (21-32)
[2016-07-19] MEDS ORDERED: LEVA500T PO (10:31)
[2016-07-19] MEDS ORDERED: PRED10TA FT (10:31)
--- NOTE | 2016-07-19 14:24 | DS.PDOC ---
Discharge Summary General Date of Admission Jul 17, 2016 at 10:06 Date of Discharge Jul 19, 2016 at 11:30 Discharge Summary PROCEDURES PERFORMED DURING STAY: None. COMPLICATIONS/CHIEF COMPLAINT: Community Acquired Pneumonia ADMISSION DIAGNOSES: 1. . Community acquired pneumonia 2. . Asthma exacerbation 3. . DISCHARGE DIAGNOSES: 1. . Community acquired pneumonia 2. . Asthma exacerbation 3. . HISTORY OF PRESENT ILLNESS: 51-year-old male with past medical history of asthma, GERD, and recent surgery for meniscal tear in the right knee resented to the ER with a chief complaint of shortness of breath and increased cough. The patient states that he had surgery last Tuesday for repair of a meniscal tear in his right knee. Since then , the patient states that he has been feeling increasingly short of breath with a fever of 102. He has tried using Tylenol at home and nebulizer treatments [id number] but this has not improved. In addition he has noted a cough productive of whitish sputum. He denies any chest pain, lightheadedness, dizziness, abdominal pain, nausea/vomiting/diarrhea. He denies any recent travel or sick contacts. In the ER, a chest x-ray was ordered and revealed a possible small pleural reaction. A CTA of the chest was done and this was negative for of pulmonary embolus, however it did reveal a right lower lobe consolidation consistent with possible pneumonia. At this time, the patient is requiring 3 L of oxygen via nasal cannula to maintain an O2 saturation above 90%. The patient was admitted to the hospitalist service for the diagnosis of community-acquired pneumonia. During the patient's hospital stay, he was treated with IV antibiotics and steroids for community acquired pneumonia with underlying asthma exacerbation. Over the last 48 hours, the patient's respiratory status has improved considerably. He has been tapered off any supplemental oxygen requirement and he has been transitioned to by mouth Levaquin and a tapering dose of oral steroids. The patient states, that he feels well enough to go home and has no acute complaints at this time. I have advised the patient to follow-up with his primary care physician within one to 2 weeks for further evaluation and management. DISCHARGE MEDICATIONS: Please see below. ALLERGIES: Please see below. PHYSICAL EXAMINATION ON DISCHARGE: VITAL SIGNS: Please see below. GENERAL: Awake, alert, oriented in no acute distress HEENT: Normocephalic, atraumatic NECK: No JVD CARDIOVASCULAR EXAMINATION: Regular rate, regular rhythm RESPIRATORY EXAMINATION: Clear to auscultation bilaterally ABDOMINAL EXAMINATION: Soft, nontender, nondistended EXTREMITIES: No erythema, no tenderness LABORATORY DATA: Please see below. IMAGING: EXAMINATION REQUESTED: CT ANGIO CHEST REASON FOR PATIENT VISIT: COUGH REASON FOR EXAM/COMMENT: Shortness of Breath CLINICAL HISTORY: Dyspnea, exclude PE. TECHNIQUE: Multiple incremental axial, coronal and oblique images are obtained from the thoracic inlet to the upper abdomen. Intravenous contrast material was administered as per pulmonary embolism protocol. COMMENTS: Groundglass densities of the right upper lobe. Right lower lobe consolidation. Bilateral basilar atelectatic lung changes. There is excellent opacification of pulmonary arterial system without evidence for pulmonary embolism. Aorta is of normal caliber without evidence for dissection or aneurysm. There is no evidence of pleural or parenchymal mass. There are no pleural effusions. There is no evidence of hilar or mediastinal lymphadenopathy. The heart and great vessels are within normal limits. Images of the upper abdomen demonstrate no evidence of adrenal mass. The bony structures are free of lytic or blastic lesions. IMPRESSION: No evidence for pulmonary embolism. Bilateral groundglass densities of the lungs. Bilateral basilar atelectatic pulmonary changes. Right lower lobe consolidation. Thank you for your kind referral of this patient. VTE Prophylaxis ordered?: Yes DISCHARGE CONDITION: Medically stable DISPOSITION: 01 Home, Self-Care ACTIVITY: As tolerated DIET: Regular diet ITEMS TO FOLLOWUP ON OUTPATIENT: 1. . Follow-up with primary care physician within one to 2 weeks for further evaluation and management 2. . Instructions on prednisone taper given TIME SPENT ON DISCHARGE: Greater than 30 minutes. Vital Signs/I&Os Vital Signs Date Time Temp Pulse Resp B/P Pulse Ox O2 Delivery O2 Flow Rate FiO2 07/19/16 09:30 Room Air 07/19/16 08:00 96.2 85 18 163/81 94 07/19/16 04:00 1.0 I&O- Last 24 Hours up to 6 AM 07/19/16 06:00 Intake Total 1920 ml Output Total 300 ml Balance 1620 ml Laboratory Data Labs 24H Laboratory Tests 2 07/19/16 06:14: Anion Gap 8, Blood Urea Nitrogen 25H, Creatinine 0.95, Sodium Level 143, Potassium Level 3.8, Chloride Level 105, Carbon Dioxide Level 30, Calcium Level 9.1 CBC/BMP Laboratory Tests 07/19/16 06:14 Calcium Level 9.1, Red Blood Count 4.73, Mean Corpuscular Volume 85.9, Mean Corpuscular Hemoglobin 30.0, Mean Corpuscular Hemoglobin Concent 35.0, Red Cell Distribution Width 12.6 Microbiology Microbiology 07/17/16 Blood Culture - Preliminary, Resulted No Growth after 48 hours. All Specime... 07/17/16 Blood Culture - Preliminary, Resulted No Growth after 48 hours. All Specime... Medications Scheduled (Requip Xl) 4 Mg Tab 4 MG PO BID NOON AND BEDTIME (Flonase Allergy Relief) 50 Mcg/Act Spr 2 SPRAYS NA QHS Aspirin (Aspirin) 325 Mg Tab 325 MG PO DAILY Fluticasone/Vilanterol (Breo Ellipta 100-25 Mcg/INH) 1 Inh Inh 1 PUFF INH DAILY Gabapentin (Gabapentin) 600 Mg Tab 600 MG PO BID NOON AND BEDTIME Levalbuterol Hydrochloride (Xopenex Concentrate) 1.25 Mg/0.5 Ml Neb 1.25 MG INH TID Levofloxacin Hemihydrate (Levaquin) 500 Mg Tab 500 MG PO DAILY Prednisone (Prednisone) 10 Mg Tab 10 MG FT ASDIRECTED Scheduled PRN Azelastine Hydrochloride (Azelastine HCl) 137 Mcg/[place] Spr 1 SPRAY NA BID PRN PRN ALLERGIES Esomeprazole Magnesium Trihydr (Nexium) 40 Mg Cap 40 MG PO DAILY PRN PRN HEARTBURN Allergies Coded Allergies: Contrast Media (Unverified Allergy, Severe, FEELS LIKE THROATS CLOSING, ) Scheller (Verified Adverse Reaction, Intermediate, THROAT ITCHES , 07/17/16) CANDELARIO SOUTH MD Jul 19, 2016 14:24
--- NOTE | 2016-07-19 15:04 | EDDOCDS ---
Physician Documentation [facility] Name: Richmond Muir Age: 51 yrs Sex: Male : 1965 Arrival Date: 07/17/2016 Time: 05:42 Bed 8 Private MD: Disposition: 07/17/16 09:15 Hospitalization ordered by Tavo Santos for Inpatient Admission. Preliminary diagnosis is Pneumonia due to other specified bacteria. - Bed requested for 4 [place]. - Status is Inpatient Admission. po - Condition is Stable. - Problem is new. - Symptoms are unchanged. Historical: - Allergies: IVP dye; - Home Meds: 1. aspirin 325 mg Oral tab 1 tab once daily 2. Requip 4 mg Oral tab 1 tab twice a day 3. gabapentin 600 mg Oral tab twice a day 4. Breo daily 5. Xopenex 1.25 mg/3 mL Nebulizer nebu 3 mL 3 times per day 6. prednisone 20 mg Oral tab 1 tab 2 times per day - PMHx: Restless Leg Syndrome; Sleep Apnea w/ CPAP; Hypercholesterolemia; - PSHx: Cystectomy; Hernia repair; foot surg left heel; Right Meniscus; - Social history: Smoking status: Patient states was never smoker of tobacco. No barriers to communication noted, The patient speaks fluent Kazakh. - Family history: Not pertinent. - : The pt / caregiver states he / she is not on anticoagulants. Home medication list is obtained from the patient. - Exposure Risk Screening:: None identified. Vital Signs: 07/17 05:46 BP 169 / 99 RA Sitting; Pulse 102; Resp 18 S; Temp 96.9(O); Pulse Ox 93% on R/A; Weight af2 90.72 kg / 200 lbs (R); Height 5 ft. 7 in. (170.18 cm) (R); 06:56 BP 143 / 102; Pulse 90; Resp 18; Pulse Ox 91% on R/A; Pain 2/10; jp6 07:19 BP 148 / 101 (auto/); po 07:20 Pulse 92 MON; Resp 20; Pulse Ox 92% on 2 lpm NC; po 08:19 BP 139 / 92 (auto/); po 08:19 Pulse 90 MON; Resp 20; Pulse Ox 91% on 2 lpm NC; Pain 0/10; po 09:19 BP 127 / 94 (auto/); po 09:19 Pulse 82 MON; Resp 18; Pulse Ox 91% on 2 lpm NC; Pain 0/10; po 11:19 BP 147 / 92 (auto/); rs3 11:19 Pulse 80 MON; Pulse Ox 91% ; rs3 11:48 BP 142 / 96 (auto/); rs3 11:49 Pulse 80 MON; Pulse Ox 91% ; rs3 12:03 BP 121 / 86 (auto/); po 12:04 Pulse 84 MON; Pulse Ox 89% ; po 12:18 BP 131 / 87 (auto/); rs3 12:20 Pulse 84 MON; Pulse Ox 90% ; rs3 12:33 BP 127 / 85 (auto/); rs3 12:34 Pulse 84 MON; Pulse Ox 90% ; rs3 12:48 BP 125 / 76 (auto/); rs3 12:49 BP 125 / 76; Pulse 86 MON; Resp 18; Pulse Ox 92% on R/A; Pain 0/10; rs3 13:18 BP 143 / 91 (auto/); po 13:19 Pulse 90 MON; Pulse Ox 89% ; po 13:51 BP 146 / 88; Pulse 94 MON; Resp 18; Temp 96.9(O); Pulse Ox 93% on 2 lpm NC; Pain 0/10; po 05:46 Body Mass Index 31.32 (90.72 kg, 170.18 cm) af2 MDM: 06:07 Chest, 2 View (pa\E\lat) Ordered. EDMS 06:17 IV Saline Lock ordered. cs11 06:18 CBC with Diff Ordered. EDMS 06:18 MED Profile Ordered. EDMS 06:19 CT Chest Angio R/O PE Ordered. EDMS 06:21 Financial registration complete. pm4 06:23 [facility] [place] Agreement was scanned into [employer] and attached to record. pm4 06:39 diphenhydrAMINE 25 mg IVP once ordered. cs11 06:39 Dexamethasone 6 mg IV at bolus once ordered. cs11 07:31 CBC with Diff Reviewed. sd1 07:31 MED Profile Reviewed. sd1 07:32 ECG WITH READING ER PHYS+CARDIAG ordered. EDMS 07:32 CIP Ordered. EDMS 07:32 Troponin Ordered. EDMS 08:16 CIP Reviewed. sd1 08:16 Troponin Reviewed. sd1 08:16 Chest, 2 View (pa\E\lat) Reviewed. sd1 08:22 -Blood Culture (Adults Only), peripheral from different site, or from device/port/PICC sd1 etc. if present ordered. 08:22 -Blood Culture Ordered. EDMS 08:23 Lactic Acid (Yuan tube on ice) Ordered. EDMS 08:24 BED REQUEST+ADM ordered. EDMS 08:24 NS 0.9% 1000 ml IV at 150 mL/hr continuous ordered. sd1 08:24 cefTRIAXone 1 grams IVPB once over 30 mins; dilute in 50mL of NS or D5W ordered. sd1 08:24 azithromycin 500 mg IVPB once over 1 hrs; dilute in 250mL of D5W or NS ordered. sd1 08:26 -Blood Culture (Adults Only), peripheral from different site, or from device/port/PICC deg etc. if present complete. 08:27 BLOOD CULTURES Ordered. EDMS 10:19 SPUTUM CULTURE AND GRAM STAIN Ordered. EDMS 10:21 Admission / Observation Status ordered. EDMS 10:21 REGULAR DIET ordered. EDMS 10:38 T-Sheet-- Draft Copy was scanned into [employer] and attached to record. seh 12:46 Requip 4 mg PO now ordered. rs3 12:46 Gabapentin 600 mg PO once ordered. rs3 13:04 Acetaminophen Tablet 650 mg PO once ordered. rs3 13:04 Requip 2.5 mg PO now ordered. rs3 14:49 Written Provider Order was scanned into [employer] and attached to record. deg 07/19 08:14 ECG/EKG was scanned into [employer] and attached to record. gb Administered Medications: 07/17 06:55 Drug: diphenhydrAMINE 25 mg [diphenhydramine 50 mg/mL injection solution (0.5 mL)] jp6 Route: IVP; Site: right antecubital; 06:55 Drug: Dexamethasone 6 mg [dexamethasone 4 mg/mL injection solution] Route: IV; Rate: jp6 bolus; Site: right antecubital; 08:59 Drug: NS 0.9% 1000 ml [sodium chloride 0.9 % injection solution] Route: IV; Rate: 150 po mL/hr; Site: right antecubital; 13:51 Follow up: IV Status: Infusion continued upon admit; IV Intake: 500ml po 08:59 Drug: cefTRIAXone 1 grams [ceftriaxone 1 gram solution for injection] Route: IVPB; po Infused Over: 30 mins; Site: right antecubital; 09:34 Follow up: IV Status: Completed infusion; IV Intake: 50ml po 09:34 Drug: azithromycin 500 mg [azithromycin 500 mg intravenous solution] Route: IVPB; po Infused Over: 1 hrs; Site: right antecubital; 10:36 Follow up: IV Status: Completed infusion; IV Intake: 250ml po 13:02 Not Given (Duplicate Order): Requip 4 mg PO now rs3 13:05 Drug: Acetaminophen 650 mg [acetaminophen 325 mg tablet (2 tabs)] Route: PO; rs3 13:19 Drug: Gabapentin 600 mg [gabapentin 100 mg capsule (6 caps)] Route: PO; rs3 13:19 Drug: Requip 2.5 mg Route: PO; rs3 Signatures: Dispatcher [employer] Merced Loya MD MD sd1 Jennifer Srinivasan, Printing Press Operator Unit deg Jamal MoranRN RN po Zulma Rodríguez, Reg Reg gb Kirill Vinson RN Yamilex Conti RN RN rs3 Cristian Tafoya, DO cs11 Keyla OjedaRN RN af2 Viktoriya Galarza,RN RN 6 Merced Reagan Say White, Reg Reg pm4 The chart was reviewed and I authenticate all verbal orders and agree with the evaluation and treatment provided.Attachments: 06:23 [facility] Payment Agreement pm4 10:38 T-Sheet-- Draft Copy [facility] 14:49 Written Provider Order deg 07/19 08:14 ECG/EKG gb Chart Complete MTDD
--- NOTE | 2016-07-19 15:04 | EDDOCDS ---
Nurse's Notes [facility] Name: Richmond Muir Age: 51 yrs Sex: Male : 1965 Arrival Date: 07/17/2016 Time: 05:42 Bed 8 Private MD: Diagnosis: Pneumonia due to other specified bacteria Presentation: 07/17 05:47 Presenting complaint: Patient states: SOB, cough starting Tuesday with fevers, af2 dizziness with coughing, tightening of chest with deep breaths. Adult Sepsis Screening: The patient does not have new or worsening altered mentation. Patient's respiratory rate is less than 22. Systolic blood pressure is greater than 100. Patient has a qSOFA score of 0- Negative Sepsis Screen. Suicide/Homicide risk assessment- the patient denies having any suicidal and/or homicidal ideations and does not present with any other emotional, behavioral or mental health complaints. Status: Patient is not a ground services instructor or dependent. Transition of care: patient was not received from another setting of care. 05:47 Acuity: TI Level 3 af2 05:47 Method Of Arrival: Walkin/Carried/Asstd af2 Triage Assessment: 05:53 General: Appears in no apparent distress, Behavior is cooperative. Pain: Denies pain. af2 Pt Declines HIV testing. Respiratory: Airway is patent Respiratory effort is even, unlabored, Reports shortness of breath cough that is. Historical: - Allergies: IVP dye; - Home Meds: 1. aspirin 325 mg Oral tab 1 tab once daily 2. Requip 4 mg Oral tab 1 tab twice a day 3. gabapentin 600 mg Oral tab twice a day 4. Breo daily 5. Xopenex 1.25 mg/3 mL Nebulizer nebu 3 mL 3 times per day 6. prednisone 20 mg Oral tab 1 tab 2 times per day - PMHx: Restless Leg Syndrome; Sleep Apnea w/ CPAP; Hypercholesterolemia; - PSHx: Cystectomy; Hernia repair; foot surg left heel; Right Meniscus; - Social history: Smoking status: Patient states was never smoker of tobacco. No barriers to communication noted, The patient speaks fluent Chadian. - Family history: Not pertinent. - : The pt / caregiver states he / she is not on anticoagulants. Home medication list is obtained from the patient. - Exposure Risk Screening:: None identified. Screenin:22 Screening information is obtained from the patient. Fall risk: No risks identified. jp6 Assistance ADL's: requires no assistance with activities of daily living. Abuse/DV Screen: The patient / caregiver reports he/she is: not in a situation that causes fear, pain or injury. Nutritional screening: No deficits noted. Advance Directives: Currently, there is no health care proxy. There is no active DNR order. There is no living will. home support is adequate. Assessment: 06:22 General: Appears in no apparent distress, uncomfortable, well developed, well jp6 nourished, Behavior is appropriate for age, cooperative. Pain: Location: chest Pain currently is 5 out of 10 on a pain scale. Quality of pain is described as aching. Neurological: Level of Consciousness is awake, alert, Oriented to person, place, time. EENT: No deficits noted. Cardiovascular: No deficits noted. Capillary refill < 3 seconds Heart tones S1 S2 present. Respiratory: Airway is patent Respiratory effort is even, unlabored, Respiratory pattern is regular, symmetrical, Breath sounds are clear bilaterally. pt c/o coughing and tightness in chest w/ coughing. GI: No deficits noted. : No deficits noted. Derm: Skin is pale. Musculoskeletal: No deficits noted. 07:32 General: Appears in no apparent distress, comfortable, Behavior is appropriate for age, po cooperative, pleasant. Pain: Location: chest Pain currently is 0 out of 10 on a pain scale. At worst was 4 out of 10 on a pain scale. Quality of pain is described as tightness Is intermittent Aggravated by coughing and deep breathing. Neurological: Level of Consciousness is awake, alert, Oriented to person, place, time. Cardiovascular: Heart tones S1 S2 present Rhythm is regular. Respiratory: Airway is patent Respiratory effort is even, unlabored, Breath sounds are clear bilaterally. Reports pain with cough pain with respiration. GI: No deficits noted. Derm: Skin is intact, is healthy with good turgor, Skin is pink, warm & dry. 07:32 Adult Sepsis Screening: The patient does not have new or worsening altered mentation. po Patient's respiratory rate is less than 22. Systolic blood pressure is greater than 100. Patient has a qSOFA score of 0- Negative Sepsis Screen. 08:25 General: Appears in no apparent distress, comfortable, Behavior is appropriate for age, po cooperative, pleasant. Pain: Pain currently is 0 out of 10 on a pain scale. At worst was 4 out of 10 on a pain scale. Neurological: No deficits noted. Cardiovascular: Rhythm is sinus rhythm. Respiratory: Airway is patent Respiratory effort is even, unlabored, Reports pain with cough pain with respiration. Derm: Skin is pink, warm & dry. 09:35 General: Appears in no apparent distress, comfortable, Behavior is appropriate for age, po cooperative, pleasant. Pain: Denies pain. Neurological: No deficits noted. Respiratory: Airway is patent Respiratory effort is even, unlabored, Breath sounds are clear bilaterally. Reports pain with cough pain with respiration. Derm: Skin is intact, is healthy with good turgor, Skin is pink, warm & dry. 09:35 Adult Sepsis Screening: The patient does not have new or worsening altered mentation. po Patient's respiratory rate is less than 22. Systolic blood pressure is greater than 100. Patient has a qSOFA score of 0- Negative Sepsis Screen. 10:36 General: Appears in no apparent distress, comfortable, Behavior is appropriate for age, po cooperative, pleasant. Pain: Denies pain. Neurological: No deficits noted. Respiratory: Airway is patent Respiratory effort is even, unlabored, Breath sounds are clear bilaterally. GI: No deficits noted. Derm: Skin is pink, warm & dry. 11:32 General: Appears in no apparent distress, comfortable, Behavior is appropriate for age, po cooperative, pleasant. Pain: Denies pain. Neurological: No deficits noted. Cardiovascular: Rhythm is sinus rhythm. Cardiovascular: Rhythm is sinus rhythm. Respiratory: Airway is patent Respiratory effort is even, unlabored. Derm: Skin is pink, warm & dry. 11:32 Adult Sepsis Screening: The patient does not have new or worsening altered mentation. po Patient's respiratory rate is less than 22. Systolic blood pressure is greater than 100. Patient has a qSOFA score of 0- Negative Sepsis Screen. 12:25 General: Appears in no apparent distress, comfortable, Behavior is appropriate for age, po cooperative, pleasant. Pain: Denies pain. Neurological: No deficits noted. Respiratory: Airway is patent Respiratory effort is even, unlabored. Derm: Skin is pink, warm & dry. 13:26 General: Appears in no apparent distress, comfortable, Behavior is appropriate for age, po cooperative, pleasant. Pain: Denies pain. Neurological: Level of Consciousness is awake, alert, Oriented to person, place, time. Cardiovascular: Rhythm is sinus rhythm. Respiratory: Airway is patent Respiratory effort is even, unlabored, Breath sounds are clear bilaterally. Reports pain with cough pain with respiration. Derm: Skin is pink, warm & dry. 13:26 Adult Sepsis Screening: The patient does not have new or worsening altered mentation. po Patient's respiratory rate is less than 22. Systolic blood pressure is greater than 100. Patient has a qSOFA score of 0- Negative Sepsis Screen. 13:53 General: Appears in no apparent distress, comfortable, Behavior is appropriate for age, po cooperative, pleasant. Pain: Denies pain. Neurological: No deficits noted. Cardiovascular: Rhythm is sinus rhythm. Respiratory: Airway is patent Respiratory effort is even, unlabored. GI: No deficits noted. Derm: Skin is intact, is healthy with good turgor, Skin is pink, warm & dry. Vital Signs: 05:46 BP 169 / 99 RA Sitting; Pulse 102; Resp 18 S; Temp 96.9(O); Pulse Ox 93% on R/A; Weight af2 90.72 kg (R); Height 5 ft. 7 in. (170.18 cm) (R); 06:56 BP 143 / 102; Pulse 90; Resp 18; Pulse Ox 91% on R/A; Pain 2/10; jp6 07:19 BP 148 / 101 (auto/); po 07:20 Pulse 92 MON; Resp 20; Pulse Ox 92% on 2 lpm NC; po 08:19 BP 139 / 92 (auto/); po 08:19 Pulse 90 MON; Resp 20; Pulse Ox 91% on 2 lpm NC; Pain 0/10; po 09:19 BP 127 / 94 (auto/); po 09:19 Pulse 82 MON; Resp 18; Pulse Ox 91% on 2 lpm NC; Pain 0/10; po 11:19 BP 147 / 92 (auto/); rs3 11:19 Pulse 80 MON; Pulse Ox 91% ; rs3 11:48 BP 142 / 96 (auto/); rs3 11:49 Pulse 80 MON; Pulse Ox 91% ; rs3 12:03 BP 121 / 86 (auto/); po 12:04 Pulse 84 MON; Pulse Ox 89% ; po 12:18 BP 131 / 87 (auto/); rs3 12:20 Pulse 84 MON; Pulse Ox 90% ; rs3 12:33 BP 127 / 85 (auto/); rs3 12:34 Pulse 84 MON; Pulse Ox 90% ; rs3 12:48 BP 125 / 76 (auto/); rs3 12:49 BP 125 / 76; Pulse 86 MON; Resp 18; Pulse Ox 92% on R/A; Pain 0/10; rs3 13:18 BP 143 / 91 (auto/); po 13:19 Pulse 90 MON; Pulse Ox 89% ; po 13:51 BP 146 / 88; Pulse 94 MON; Resp 18; Temp 96.9(O); Pulse Ox 93% on 2 lpm NC; Pain 0/10; po 05:46 Body Mass Index 31.32 (90.72 kg, 170.18 cm) af2 Vitals: 05:46 Log In Time: July 17, 2016 at 05:44. af2 ED Course: 05:44 Patient visited by Qi Pappas Reg. hs2 05:44 Patient moved to Waiting hs2 05:49 Triage Initiated af2 05:53 Patient visited by Keyla Ojeda RN. af2 05:53 Patient moved to 8 af2 06:06 Cristian Tafoya DO is Attending Physician. cs11 06:06 Patient visited by Cristian Tafoya DO. cs11 06:14 Viktoriya Galarza RN is Primary Nurse. jp6 06:14 Patient visited by Viktoriya Galarza RN. jp6 06:22 The patient / caregiver is instructed regarding the plan of care and ED course. jp6 06:23 [facility] [place] was scanned into [employer] and attached to record. pm4 06:55 Inserted saline lock: 18 gauge in right antecubital area and blood collected. Labs jp6 drawn. (by ED staff). Sent per order to lab. 06:59 Attending Physician role handed off by Cristian Tafoya DO sd1 06:59 Merced Trejo MD is Attending Physician. sd1 07:09 Primary Nurse role handed off by Viktoriya Galarza,EVY deg 07:20 Placed in gown. Bed in low position. Call light in reach. Side rails up X 1. po 07:20 IV is patent, is intact, is free of redness or swelling. po 07:28 Jamal Moran,RN is Primary Nurse. po 07:37 Patient visited by Jamal Moran,EVY. po 07:58 EKG done. (by ED staff). Reviewed by Merced Trejo MD. jrd 08:05 Chest, 2 View (pa\E\lat) Returned. EDMS 08:08 Patient visited by John Mercado PCA. jrd 08:43 Lactic Acid (Yuan tube on ice) Sent. jrd 08:43 -Blood Culture Sent. jrd 08:46 CT Chest Angio R/O PE Returned. EDMS 09:15 Tavo Santos is Hospitalizing Provider. sd1 10:04 Patient visited by Jamal Moran,EVY. po 10:38 T-Sheet-- Draft Copy was scanned into [employer] and attached to record. seh 13:19 Patient visited by Yamilex Brown RN. rs3 13:33 Patient visited by Jamal Moran,EVY. po 13:51 Pt visited by . po 13:51 IV is patent, is intact, is free of redness or swelling. with fluids infusing freely. po No procedures done that require assistance. 13:56 Patient visited by Jamal Moran RN. po 14:49 Written Provider Order was scanned into [employer] and attached to record. deg 07/19 08:14 ECG/EKG was scanned into [employer] and attached to record. gb Administered Medications: 07/17 06:55 Drug: diphenhydrAMINE 25 mg [diphenhydramine 50 mg/mL injection solution (0.5 mL)] jp6 Route: IVP; Site: right antecubital; 06:55 Drug: Dexamethasone 6 mg [dexamethasone 4 mg/mL injection solution] Route: IV; Rate: jp6 bolus; Site: right antecubital; 08:59 Drug: NS 0.9% 1000 ml [sodium chloride 0.9 % injection solution] Route: IV; Rate: 150 po mL/hr; Site: right antecubital; 13:51 Follow up: IV Status: Infusion continued upon admit; IV Intake: 500ml po 08:59 Drug: cefTRIAXone 1 grams [ceftriaxone 1 gram solution for injection] Route: IVPB; po Infused Over: 30 mins; Site: right antecubital; 09:34 Follow up: IV Status: Completed infusion; IV Intake: 50ml po 09:34 Drug: azithromycin 500 mg [azithromycin 500 mg intravenous solution] Route: IVPB; po Infused Over: 1 hrs; Site: right antecubital; 10:36 Follow up: IV Status: Completed infusion; IV Intake: 250ml po 13:02 Not Given (Duplicate Order): Requip 4 mg PO now rs3 13:05 Drug: Acetaminophen 650 mg [acetaminophen 325 mg tablet (2 tabs)] Route: PO; rs3 13:19 Drug: Gabapentin 600 mg [gabapentin 100 mg capsule (6 caps)] Route: PO; rs3 13:19 Drug: Requip 2.5 mg Route: PO; rs3 Intake: 09:34 IV: 50.00ml; Total: 50.00ml. po 10:36 IV: 250.00ml; Total: 300.00ml. po 13:51 IV: 500.00ml; Total: 800.00ml. po Order Results: Lab Order: CBC with Diff; SPEC'M 07/17/16 06:54 Test: WHITE BLOOD COUNT; Value: 6.9; Range: 4.0-10.0; Units: K/mm3; Status: F Test: RED BLOOD COUNT; Value: 5.89; Range: 4.30-6.10; Units: M/mm3; Status: F Test: HEMOGLOBIN; Value: 16.7; Range: 14.0-18.0; Units: g/dl; Status: F Test: HEMATOCRIT; Value: 49.9; Range: 42.0-52.0; Units: %; Status: F Test: MEAN CORPUSCULAR VOLUME; Value: 84.6; Range: 80.0-96.0; Units: fl; Status: F Test: MEAN CORPUSCULAR HEMOGLOBIN; Value: 28.3; Range: 27.0-33.0; Units: pg; Status: F Test: MEAN CORPUSCULAR HGB CONC; Value: 33.5; Range: 32.0-36.5; Units: g/dl; Status: F Test: RED CELL DISTRIBUTION WIDTH; Value: 13.6; Range: 11.5-14.5; Units: %; Status: F Test: PLATELET COUNT, AUTOMATED; Value: 295; Range: 150-450; Units: k/mm3; Status: F Test: NEUTROPHILS %; Value: 76.3; Range: 36.0-66.0; Abnormal: Above high normal; Units: %; Status: F Test: LYMPH %; Value: 10.2; Range: 24.0-44.0; Abnormal: Below low normal; Units: %; Status: F Test: MONO %; Value: 4.5; Range: 0.0-5.0; Units: %; Status: F Test: EOS %; Value: 0.5; Range: 0.0-3.0; Units: %; Status: F Test: BASO %; Value: 3.2; Range: 0.0-1.0; Abnormal: Above high normal; Units: %; Status: F Test: LARGE UNSTAINED CELL %; Value: 5.3; Range: 0.0-4.0; Abnormal: Above high normal; Units: %; Status: F Test: NEUTROPHILS #; Value: 5.2; Range: 1.8-7.7; Units: K/mm3; Status: F Test: LYMPH #; Value: 1.1; Range: 1.5-4.5; Abnormal: Below low normal; Units: K/mm3; Status: F Test: MONO #; Value: 0.3; Range: 0.0-0.8; Units: K/mm3; Status: F Test: EOS #; Value: 0.0; Range: 0.0-0.50; Units: K/mm3; Status: F Test: BASO #; Value: 0.2; Range: 0.0-0.2; Units: K/mm3; Status: F Test: LARGE UNSTAINED CELL #; Value: 0.4; Range: 0.0-0.4; Units: K/mm3; Status: F Lab Order: MED Profile; SPEC'M 07/17/16 06:53 Test: GLUCOSE, FASTING; Value: 135; Range: 70-105; Abnormal: Above high normal; Units: MG/DL; Status: F Test: BLOOD UREA NITROGEN; Value: 15; Range: 7-18; Units: MG/DL; Status: F Test: CREATININE FOR GFR; Value: 0.94; Range: 0.70-1.30; Units: MG/DL; Status: F Test: GLOMERULAR FILTRATION RATE; Value: > 60.0; Range: >56; Status: F Test: SODIUM LEVEL; Value: 142; Range: 136-145; Units: MEQ/L; Status: F Test: POTASSIUM SERUM; Value: 4.4; Range: 3.5-5.1; Units: MEQ/L; Status: F Test: CHLORIDE LEVEL; Value: 104; Range: 98-107; Units: MEQ/L; Status: F Test: CARBON DIOXIDE LEVEL; Value: 30; Range: 21-32; Units: MEQ/L; Status: F Test: ANION GAP; Value: 8; Range: 8-16; Units: MEQ/L; Status: F Test: CALCIUM LEVEL; Value: 9.9; Range: 8.5-10.1; Units: MG/DL; Status: F Test Note: ; Units are mL/min/1.73 m2 Chronic Kidney Disease Staging per NKF: Stage I & II GFR >=60 Normal to Mildly Decreased Stage III GFR 30-59 Moderately Decreased Stage IV GFR 15-29 Severely Decreased Stage V GFR <15 Very Little GFR Left ESRD GFR <15 on DIRECTOR OF ACQUISITION MARKETING Lab Order: CIP; SPEC'M 07/17/16 06:53 Test: CPK CREATINE PHOSPHOKINASE; Value: 140; Range: 39-308; Units: U/L; Status: F Test: CK-MB VALUE MASS; Value: 1.2; Range: 0.0-3.6; Units: NG/ML; Status: F Test: MB/CK RELATIVE INDEX; Value: 0.85; Range: < OR =4; Status: F Test Note: ; DIAGNOSIS CRITERIA MMB ng/ml Relative Index (RI) NON-AMI < or = 5 N/A YUAN ZONE > 5 < or = 4 AMI > 5 > 4 Lab Order: Troponin; SPEC'M 07/17/16 06:53 Test: TROPONIN I; Value: < 0.02; Range: < 0.10; Units: NG/ML; Status: F Test Note: ; Troponin I Reference Interval for [employer] LOCI: 99th Percentile= 0.00-0.045 ng/ml Risk Stratification: <= 0.10 ng/ml Decreased Risk for Adverse Clinical Events. 0.10-1.50 ng/ml Increased Risk for Adverse Clinical Events. Evaluation of additional criterion and/or repeat testing in 2-6 hours is suggested to rule out myocardial damage. >= 1.50 ng/ml Indicative of Myocardial Injury. Lab Order: Lactic Acid (Yuan tube on ice); SPEC'M 07/17/16 08:41 Test: LACTIC ACID LEVEL, LACTATE; Value: 1.4; Range: 0.4-2.0; Units: MMOL/L; Status: F Radiology Order: Chest, 2 View (pa\E\lat) Test: Chest, 2 View (pa\E\lat) REASON FOR EXAMINATION: Cough; Clinical: Cough .; ; Comparison: 07/15/2016 .; ; Technique: PA and lateral.; ; Findings:; The mediastinum and cardiac silhouette are normal and stable. The lung aguilera; again suggest bibasilar atelectasis (left greater than right) and possible small; pleural reactions. No definite effusion. No pneumothorax. Skeletal structures; stable.; ; Impression:; 1. Chronic changes with suspected bibasilar atelectasis and possible small; pleural reaction.; ; ; Signed by; Tung Sosa MD 07/17/2016 07:45 A; Radiology Order: CT Chest Angio R/O PE Test: CT Chest Angio R/O PE REASON FOR EXAMINATION: Shortness of Breath; ; CLINICAL HISTORY: Dyspnea, exclude PE.; TECHNIQUE: Multiple incremental axial, coronal and oblique images are obtained from the thoracic inle; t to the upper abdomen. Intravenous contrast material was administered as per pulmonary embolism prot; ocol.; COMMENTS:; Groundglass densities of the right upper lobe.; Right lower lobe consolidation.; Bilateral basilar atelectatic lung changes.; There is excellent opacification of pulmonary arterial system without evidence for pulmonary embolism; . Aorta is of normal caliber without evidence for dissection or aneurysm.; There is no evidence of pleural or parenchymal mass.; There are no pleural effusions.; There is no evidence of hilar or mediastinal lymphadenopathy.; The heart and great vessels are within normal limits.; Images of the upper abdomen demonstrate no evidence of adrenal mass.; The bony structures are free of lytic or blastic lesions.; IMPRESSION:; No evidence for pulmonary embolism.; Bilateral groundglass densities of the lungs.; Bilateral basilar atelectatic pulmonary changes.; Right lower lobe consolidation.; Thank you for your kind referral of this patient.; ; Outcome: 09:15 Decision to Hospitalize by Provider. sd1 13:51 Discharge Assessment: patient administered narcotics - no. The following High Risk po Discharge criteria are identified: None. Admitted to Med/Surg accompanied by tech, family with patient, via stretcher, with oxygen, with chart. Condition: stable. CT Study completed. Property :Personal belongings accompany Pt. 14:02 Patient left the ED. po Signatures: Dispatcher [employer] EDMS Merced Trejo MD MD sd1 Jennifer Srinivasan, Soda Room Operator Unit deg Jamal Moran,RN RN po Zulma Rodríguez, Reg Reg gb Yamilex Brown,RN RN rs3 Cristian Tafoya, DO cs11 John Mercado, ALLIED HEALTH INSTRUCTOR ALLIED HEALTH INSTRUCTOR Keyla Anderson,RN RN af2 Qi Pappas, Reg Reg hs2 Viktoriya Galarza,RN RN [place] Paul, Reg Reg pm4 Chart Complete [facility]
--- NOTE | 2016-07-19 15:04 | EDDOCDS ---
Physician Documentation [facility] Name: Richmond Muir Age: 51 yrs Sex: Male : 1965 Arrival Date: 07/17/2016 Time: 05:42 Bed 8 Private MD: Disposition: 07/17/16 09:15 Hospitalization ordered by Tavo Santos for Inpatient Admission. Preliminary diagnosis is Pneumonia due to other specified bacteria. - Bed requested for 4 [place]. - Status is Inpatient Admission. po - Condition is Stable. - Problem is new. - Symptoms are unchanged. Historical: - Allergies: IVP dye; - Home Meds: 1. aspirin 325 mg Oral tab 1 tab once daily 2. Requip 4 mg Oral tab 1 tab twice a day 3. gabapentin 600 mg Oral tab twice a day 4. Breo daily 5. Xopenex 1.25 mg/3 mL Nebulizer nebu 3 mL 3 times per day 6. prednisone 20 mg Oral tab 1 tab 2 times per day - PMHx: Restless Leg Syndrome; Sleep Apnea w/ CPAP; Hypercholesterolemia; - PSHx: Cystectomy; Hernia repair; foot surg left heel; Right Meniscus; - Social history: Smoking status: Patient states was never smoker of tobacco. No barriers to communication noted, The patient speaks fluent Syriac. - Family history: Not pertinent. - : The pt / caregiver states he / she is not on anticoagulants. Home medication list is obtained from the patient. - Exposure Risk Screening:: None identified. Vital Signs: 07/17 05:46 BP 169 / 99 RA Sitting; Pulse 102; Resp 18 S; Temp 96.9(O); Pulse Ox 93% on R/A; Weight af2 90.72 kg / 200 lbs (R); Height 5 ft. 7 in. (170.18 cm) (R); 06:56 BP 143 / 102; Pulse 90; Resp 18; Pulse Ox 91% on R/A; Pain 2/10; jp6 07:19 BP 148 / 101 (auto/); po 07:20 Pulse 92 MON; Resp 20; Pulse Ox 92% on 2 lpm NC; po 08:19 BP 139 / 92 (auto/); po 08:19 Pulse 90 MON; Resp 20; Pulse Ox 91% on 2 lpm NC; Pain 0/10; po 09:19 BP 127 / 94 (auto/); po 09:19 Pulse 82 MON; Resp 18; Pulse Ox 91% on 2 lpm NC; Pain 0/10; po 11:19 BP 147 / 92 (auto/); rs3 11:19 Pulse 80 MON; Pulse Ox 91% ; rs3 11:48 BP 142 / 96 (auto/); rs3 11:49 Pulse 80 MON; Pulse Ox 91% ; rs3 12:03 BP 121 / 86 (auto/); po 12:04 Pulse 84 MON; Pulse Ox 89% ; po 12:18 BP 131 / 87 (auto/); rs3 12:20 Pulse 84 MON; Pulse Ox 90% ; rs3 12:33 BP 127 / 85 (auto/); rs3 12:34 Pulse 84 MON; Pulse Ox 90% ; rs3 12:48 BP 125 / 76 (auto/); rs3 12:49 BP 125 / 76; Pulse 86 MON; Resp 18; Pulse Ox 92% on R/A; Pain 0/10; rs3 13:18 BP 143 / 91 (auto/); po 13:19 Pulse 90 MON; Pulse Ox 89% ; po 13:51 BP 146 / 88; Pulse 94 MON; Resp 18; Temp 96.9(O); Pulse Ox 93% on 2 lpm NC; Pain 0/10; po 05:46 Body Mass Index 31.32 (90.72 kg, 170.18 cm) af2 MDM: 06:07 Chest, 2 View (pa\E\lat) Ordered. EDMS 06:17 IV Saline Lock ordered. cs11 06:18 CBC with Diff Ordered. EDMS 06:18 MED Profile Ordered. EDMS 06:19 CT Chest Angio R/O PE Ordered. EDMS 06:21 Financial registration complete. pm4 06:23 [facility] [place] Payment Agreement was scanned into [employer] and attached to record. pm4 06:39 diphenhydrAMINE 25 mg IVP once ordered. cs11 06:39 Dexamethasone 6 mg IV at bolus once ordered. cs11 07:31 CBC with Diff Reviewed. sd1 07:31 MED Profile Reviewed. sd1 07:32 ECG WITH READING ER PHYS+CARDIAG ordered. EDMS 07:32 CIP Ordered. EDMS 07:32 Troponin Ordered. EDMS 08:16 CIP Reviewed. sd1 08:16 Troponin Reviewed. sd1 08:16 Chest, 2 View (pa\E\lat) Reviewed. sd1 08:22 -Blood Culture (Adults Only), peripheral from different site, or from device/port/PICC sd1 etc. if present ordered. 08:22 -Blood Culture Ordered. EDMS 08:23 Lactic Acid (Yuan tube on ice) Ordered. EDMS 08:24 BED REQUEST+ADM ordered. EDMS 08:24 NS 0.9% 1000 ml IV at 150 mL/hr continuous ordered. sd1 08:24 cefTRIAXone 1 grams IVPB once over 30 mins; dilute in 50mL of NS or D5W ordered. sd1 08:24 azithromycin 500 mg IVPB once over 1 hrs; dilute in 250mL of D5W or NS ordered. sd1 08:26 -Blood Culture (Adults Only), peripheral from different site, or from device/port/PICC deg etc. if present complete. 08:27 BLOOD CULTURES Ordered. EDMS 10:19 SPUTUM CULTURE AND GRAM STAIN Ordered. EDMS 10:21 Admission / Observation Status ordered. EDMS 10:21 REGULAR DIET ordered. EDMS 10:38 T-Sheet-- Draft Copy was scanned into [employer] and attached to record. seh 12:46 Requip 4 mg PO now ordered. rs3 12:46 Gabapentin 600 mg PO once ordered. rs3 13:04 Acetaminophen Tablet 650 mg PO once ordered. rs3 13:04 Requip 2.5 mg PO now ordered. rs3 14:49 Written Provider Order was scanned into [employer] and attached to record. deg 07/19 08:14 ECG/EKG was scanned into [employer] and attached to record. gb Administered Medications: 07/17 06:55 Drug: diphenhydrAMINE 25 mg [diphenhydramine 50 mg/mL injection solution (0.5 mL)] jp6 Route: IVP; Site: right antecubital; 06:55 Drug: Dexamethasone 6 mg [dexamethasone 4 mg/mL injection solution] Route: IV; Rate: jp6 bolus; Site: right antecubital; 08:59 Drug: NS 0.9% 1000 ml [sodium chloride 0.9 % injection solution] Route: IV; Rate: 150 po mL/hr; Site: right antecubital; 13:51 Follow up: IV Status: Infusion continued upon admit; IV Intake: 500ml po 08:59 Drug: cefTRIAXone 1 grams [ceftriaxone 1 gram solution for injection] Route: IVPB; po Infused Over: 30 mins; Site: right antecubital; 09:34 Follow up: IV Status: Completed infusion; IV Intake: 50ml po 09:34 Drug: azithromycin 500 mg [azithromycin 500 mg intravenous solution] Route: IVPB; po Infused Over: 1 hrs; Site: right antecubital; 10:36 Follow up: IV Status: Completed infusion; IV Intake: 250ml po 13:02 Not Given (Duplicate Order): Requip 4 mg PO now rs3 13:05 Drug: Acetaminophen 650 mg [acetaminophen 325 mg tablet (2 tabs)] Route: PO; rs3 13:19 Drug: Gabapentin 600 mg [gabapentin 100 mg capsule (6 caps)] Route: PO; rs3 13:19 Drug: Requip 2.5 mg Route: PO; rs3 Signatures: Dispatcher [employer] Merced Loya MD MD sd1 Jennifer Srinivasan, Automotive Quality Manager Unit deg Jamal MoranRN RN po Zulma Rodríguez, Reg Reg gb Kirill Vinson RN Yamilex Conti RN RN rs3 Cristian Tafoya, DO cs11 Keyla OjedaRN RN af2 Viktoriya Galarza,RN RN 6 Mer[place] Reagan Say White, Reg Reg pm4 The chart was reviewed and I authenticate all verbal orders and agree with the evaluation and treatment provided.Attachments: 06:23 [facility] Payment Agreement pm4 10:38 T-Sheet-- Draft Copy [facility] 14:49 Written Provider Order deg 07/19 08:14 ECG/EKG gb Chart Complete MTDD
== END 2016-07-19 11:30 | disposition home or self-care (01) | DRG 194 ==
LOC: M ED 05:42 → M ED INP 10:06 → M MSPAV 14:08 → M PED 22:10
PROVIDERS: ADMIT Internal Medicine; ATTEND Internal Medicine
DX: J18.9 Pneumonia, unspecified organism (principal); J45.901 Unspecified asthma with (acute) exacerbation; K21.9 Gastro-esophageal reflux disease without esophagitis; Z79.52 Long term (current) use of systemic steroids; Z79.82 Long term (current) use of aspirin; Z79.899 Other long term (current) drug therapy; R09.02 Hypoxemia; S83.206D Unspecified tear of unspecified meniscus, current injury, right knee, subsequent encounter; X58.XXXD Exposure to other specified factors, subsequent encounter; Y92.9 Unspecified place or not applicable

== ENCOUNTER → 2016-09-02 | Outpatient (CLI) | payer OTHER ==
--- NOTE | 2016-09-02 11:48 | REP ---
Reason: History orf pneumonia. COMPARISON: 07/17/2016. FINDINGS: The superior mediastinal structures are midline. The cardiac silhouette is unremarkable in size, shape, and position. The diaphragmatic surfaces of the lungs are regular, and the costophrenic angles are clear. The pulmonary aguilera are clear. The imaged osseous structures are intact. IMPRESSION: There is no acute cardiopulmonary disease. Subtle basilar opacities seen previously have resolved. Signed by Narciso Oneal DO 09/02/2016 11:54 A
== END ==
LOC: M WUC 10:49
PROVIDERS: ATTEND Internal Medicine
DX: J18.9 Pneumonia, unspecified organism (principal)

== ENCOUNTER → 2016-10-14 | Outpatient (CLI) | payer OTHER ==
[2016-10-14 12:59] LABS: ALBUMIN 4.4 GM/DL (3.2-5.2); ALBUMIN/GLOBULIN RATIO 1.63 (1.00-1.93); ALKALINE PHOSPHATASE 72 U/L (45-117); ALT/SGPT 46 U/L (12-78); ANION GAP 5 MEQ/L (8-16); AST/SGOT 20 U/L (15-37); BILIRUBIN,TOTAL 0.7 MG/DL (0.2-1.0); BLOOD UREA NITROGEN 18 MG/DL (7-18); CALCIUM LEVEL 8.9 MG/DL (8.5-10.1); CARBON DIOXIDE LEVEL 31 MEQ/L (21-32); CHLORIDE LEVEL 105 MEQ/L (98-107); CREATININE FOR GFR 0.94 MG/DL (0.70-1.30); GLOMERULAR FILTRATION RATE > 60.0 (>56); GLUCOSE, FASTING 107 MG/DL (70-105); POTASSIUM SERUM 4.4 MEQ/L (3.5-5.1); SODIUM LEVEL 141 MEQ/L (136-145); TOTAL PROTEIN 7.1 GM/DL (6.4-8.2)
[2016-10-14 13:09] LABS: BASO % 0.2 % (0.0-1.0); EOS # 0.1 K/mm3 (0.0-0.50); EOS % 1.1 % (0.0-3.0); LARGE UNSTAINED CELL # 0.1 K/mm3 (0.0-0.4); LARGE UNSTAINED CELL % 1.2 % (0.0-4.0); LYMPH # 1.7 K/mm3 (1.5-4.5); LYMPH % 28.8 % (24.0-44.0); MEAN CORPUSCULAR HEMOGLOBIN 29.8 pg (27.0-33.0); MEAN CORPUSCULAR VOLUME 85.3 fl (80.0-96.0); MONO # 0.3 K/mm3 (0.0-0.8); MONO % 5.6 % (0.0-5.0); NEUTROPHILS # 3.5 K/mm3 (1.8-7.7); NEUTROPHILS % 63.1 % (36.0-66.0); PLATELET COUNT, AUTOMATED 266 k/mm3 (150-450); RED CELL DISTRIBUTION WIDTH 12.7 % (11.5-14.5); WHITE BLOOD COUNT 5.6 K/mm3 (4.0-10.0)
== END ==
LOC: M WUC 09:17
PROVIDERS: ATTEND Physician Assistant
DX: R10.811 Right upper quadrant abdominal tenderness (principal)

== ENCOUNTER → 2016-11-01 | Outpatient (CLI) | payer OTHER ==
[~2016-11-01] MED LIST changes: +GASTROGRAFIN SOLUTION 30ML (Q9963) As Ordered ONE; +ISOVUE-370 76% 100ML VIAL (Q9967) As Ordered ONE
--- NOTE | 2016-11-02 07:06 | REP ---
Clinical: Right upper quadrant tenderness. Technique: Axial contrast enhanced images from the lung bases to the pubic symphysis using oral and 100 ml Isovue 370 intravenous contrast material with precontrast images of the abdomen as well as coronal and sagittal re-formations. Comparison: 12/16/2006. Findings: Lung bases are clear. Visualized heart and pericardium normal. Liver, spleen, pancreas, gallbladder, bilateral adrenal glands and kidneys are essentially normal. 1 mm nonobstructing left renal calculus and solitary bilateral subcentimeter renal cysts noted. The enteric system is without obstruction or acute inflammatory process. Normal terminal ileum and appendix are identified in the right lower quadrant. Soft tissue density within the cecum likely represents fecal material and less likely mass lesion. Pelvis demonstrates normal bladder and age appropriate prostate/seminal vesicles. Fat containing left inguinal hernia measures approximately 3.5 cm. No ascites. No intraperitoneal or retroperitoneal adenopathy. No mass lesion. Vasculature normal. Surrounding musculoskeletal structures are intact without focal osseous abnormality. Impression: 1. 1 mm nonobstructing left renal calculus and bilateral solitary subcentimeter benign renal cysts. 2. 3.5 cm fat containing left inguinal hernia. 3. Focal fecal material suggested within the cecum less likely representing mass lesion and correlation with colonoscopy and/or barium enema may be warranted. Signed by Tung Sosa MD 11/02/2016 06:57 A
== END ==
LOC: M RAD 14:46
PROVIDERS: ATTEND Psychiatry & Neurology Neurology
DX: N20.0 Calculus of kidney (principal); K40.90 Unilateral inguinal hernia, without obstruction or gangrene, not specified as recurrent
CPT/HCPCS: 74178; Q9963; Q9967

== ENCOUNTER → 2016-12-11 | Outpatient (CLI) | payer OTHER ==
[~2016-12-11] MED LIST changes: -GASTROGRAFIN SOLUTION 30ML (Q9963) As Ordered ONE; -ISOVUE-370 76% 100ML VIAL (Q9967) As Ordered ONE
[2016-12-11 18:44] LABS: ALBUMIN 3.9 GM/DL (3.2-5.2); ALBUMIN/GLOBULIN RATIO 1.44 (1.00-1.93); ALKALINE PHOSPHATASE 82 U/L (45-117); ALT/SGPT 31 U/L (12-78); ANION GAP 7 MEQ/L (8-16); AST/SGOT 23 U/L (15-37); BILIRUBIN,TOTAL 0.4 MG/DL (0.2-1.0); BLOOD UREA NITROGEN 16 MG/DL (7-18); CALCIUM LEVEL 8.4 MG/DL (8.5-10.1); CARBON DIOXIDE LEVEL 27 MEQ/L (21-32); CHLORIDE LEVEL 108 MEQ/L (98-107); CHOLESTEROL LEVEL 184 MG/DL (<200); CREATININE FOR GFR 0.93 MG/DL (0.70-1.30); GLOMERULAR FILTRATION RATE > 60.0 (>56); GLUCOSE, FASTING 87 MG/DL (70-105); POTASSIUM SERUM 4.4 MEQ/L (3.5-5.1); SODIUM LEVEL 142 MEQ/L (136-145); TOTAL PROTEIN 6.6 GM/DL (6.4-8.2); TRIGLYCERIDES LEVEL 253 MG/DL (<150)
== END ==
LOC: M WUC 08:17
PROVIDERS: ATTEND Internal Medicine
DX: K76.0 Fatty (change of) liver, not elsewhere classified (principal); E78.00 Pure hypercholesterolemia, unspecified

== ENCOUNTER → 2017-06-14 | Outpatient (CLI) | payer OTHER ==
[~2017-06-14] MED LIST changes: +LEVA1TAB2 PO; -LEVA500T PO; -PRED10TA FT; +PRED10TA2 FT
[2017-06-14 13:40] LABS: MEAN CORPUSCULAR HEMOGLOBIN 29.2 pg (27.0-33.0); MEAN CORPUSCULAR HGB CONC 33.8 g/dl (32.0-36.5); MEAN CORPUSCULAR VOLUME 86.5 fl (80.0-96.0); PLATELET COUNT, AUTOMATED 246 10^3/uL (150-450); RED CELL DISTRIBUTION WIDTH 12.9 % (11.5-14.5); WHITE BLOOD COUNT 5.5 10^3/uL (4.0-10.0)
[2017-06-14 14:04] LABS: ALBUMIN 4.2 GM/DL (3.2-5.2); ALBUMIN/GLOBULIN RATIO 1.31 (1.00-1.93); ALKALINE PHOSPHATASE 78 U/L (45-117); ALT/SGPT 70 U/L (12-78); ANION GAP 6 MEQ/L (8-16); AST/SGOT 29 U/L (7-37); BILIRUBIN,TOTAL 0.8 MG/DL (0.2-1.0); BLOOD UREA NITROGEN 15 MG/DL (7-18); CALCIUM LEVEL 9.2 MG/DL (8.5-10.1); CARBON DIOXIDE LEVEL 30 MEQ/L (21-32); CHLORIDE LEVEL 108 MEQ/L (98-107); CHOLESTEROL LEVEL 176 MG/DL (<200); CREATININE FOR GFR 0.97 MG/DL (0.70-1.30); GLOMERULAR FILTRATION RATE > 60.0 (>56); GLUCOSE, FASTING 94 MG/DL (70-105); MAGNESIUM LEVEL 2.1 MG/DL (1.8-2.4); POTASSIUM SERUM 4.4 MEQ/L (3.5-5.1); SODIUM LEVEL 144 MEQ/L (136-145); TOTAL PROTEIN 7.4 GM/DL (6.4-8.2); TRIGLYCERIDES LEVEL 74 MG/DL (<150)
== END ==
LOC: M WUC 09:44
PROVIDERS: ATTEND Internal Medicine
DX: G47.30 Sleep apnea, unspecified (principal); K76.0 Fatty (change of) liver, not elsewhere classified

== ENCOUNTER 2017-08-22 20:11 | Emergency (ER) | payer OTHER ==
[2017-08-22] MEDS: MORPHINE 10 MG/ML 1ML VIAL (J2270) IV (20:15)
[2017-08-22] MEDS: NS 1,000 ML IV (20:15)
[2017-08-22] MEDS: MORPHINE 2 MG/ML 1ML SYRINGE (J2270) IV ×6 (20:15→21:05)
[2017-08-22 20:34] LABS: CARBOXYHEMOGLOBIN 1.7 % (0.0-1.5)
[2017-08-22 20:36] LABS: BASO % 0.3 % (0.0-1.0); EOS # 0.1 10^3/uL (0.0-0.50); EOS % 0.5 % (0.0-3.0); HEMATOCRIT 42.4 % (42.0-52.0); HEMOGLOBIN 14.2 g/dl (14.0-18.0); IMMATURE GRANULOCYTE % 2.2 % (0-3.0); LYMPH # 2.9 10^3/uL (1.5-4.5); LYMPH % 24.5 % (24.0-44.0); MEAN CORPUSCULAR HGB CONC 33.5 g/dl (32.0-36.5); MEAN CORPUSCULAR VOLUME 86.7 fl (80.0-96.0); MONO # 0.9 10^3/uL (0.0-0.8); MONO % 7.3 % (0.0-5.0); NEUTROPHILS # 7.6 10^3/uL (1.8-7.7); NEUTROPHILS % 65.2 % (36.0-66.0); PLATELET COUNT, AUTOMATED 315 10^3/uL (150-450); RED BLOOD COUNT 4.89 10^6/uL (4.30-6.10); WHITE BLOOD COUNT 11.7 10^3/uL (4.0-10.0)
[2017-08-22 21:01] LABS: ALBUMIN/GLOBULIN RATIO 1.33 (1.00-1.93); ALKALINE PHOSPHATASE 68 U/L (45-117); ALT/SGPT 62 U/L (12-78); ANION GAP 8 MEQ/L (8-16); AST/SGOT 39 U/L (7-37); BILIRUBIN,DIRECT 0.1 MG/DL (0.0-0.2); BILIRUBIN,TOTAL 0.4 MG/DL (0.2-1.0); BLOOD UREA NITROGEN 20 MG/DL (7-18); CALCIUM LEVEL 8.9 MG/DL (8.5-10.1); CARBON DIOXIDE LEVEL 27 MEQ/L (21-32); CHLORIDE LEVEL 109 MEQ/L (98-107); CPK CREATINE PHOSPHOKINASE 554 U/L (39-308); CREATININE FOR GFR 1.42 MG/DL (0.70-1.30); GLUCOSE, FASTING 125 MG/DL (70-100); POTASSIUM SERUM 4.2 MEQ/L (3.5-5.1); SODIUM LEVEL 144 MEQ/L (136-145)
== END 2017-08-22 21:30 | disposition short-term general hospital (02) ==
LOC: M ED 20:11
DX: S32.9XXA Fracture of unspecified parts of lumbosacral spine and pelvis, initial encounter for closed fracture (principal); X00.4XXA Hit by object from burning building or structure in uncontrolled fire, initial encounter; Y92.89 Other specified places as the place of occurrence of the external cause; Y99.0 Civilian activity done for income or pay; J44.9 Chronic obstructive pulmonary disease, unspecified; J45.909 Unspecified asthma, uncomplicated; K21.9 Gastro-esophageal reflux disease without esophagitis; Z79.899 Other long term (current) drug therapy; Z79.82 Long term (current) use of aspirin; Z79.51 Long term (current) use of inhaled steroids; Z91.018 Allergy to other foods; Z91.041 Radiographic dye allergy status
CPT/HCPCS: J2270

== ENCOUNTER → 2017-11-15 | Outpatient (CLI) | payer OTHER | LOC: M PAIN 15:30 | DX: G89.29 Other chronic pain (principal); G57.92 Unspecified mononeuropathy of left lower limb; M54.5 Low back pain; G25.81 Restless legs syndrome; S37.20XS Unspecified injury of bladder, sequela; S37.30XS Unspecified injury of urethra, sequela; E78.5 Hyperlipidemia, unspecified; K76.0 Fatty (change of) liver, not elsewhere classified; G47.00 Insomnia, unspecified; F34.1 Dysthymic disorder; K44.9 Diaphragmatic hernia without obstruction or gangrene; Z79.01 Long term (current) use of anticoagulants; Z79.899 Other long term (current) drug therapy; Z91.041 Radiographic dye allergy status | CPT/HCPCS: G0463 ==

== ENCOUNTER → 2017-12-30 | Outpatient (CLI) | payer OTHER | LOC: M RAD 14:50 | DX: R22.42 Localized swelling, mass and lump, left lower limb (principal) | CPT/HCPCS: 93971 ==

== ENCOUNTER → 2018-04-22 | Outpatient (CLI) | payer OTHER | LOC: M WUC 08:47 | DX: R06.02 Shortness of breath (principal); J20.9 Acute bronchitis, unspecified | CPT/HCPCS: 71046 ==

== ENCOUNTER → 2018-05-18 | Outpatient (CLI) | payer OTHER ==
[2018-05-18 15:21] LABS: HEMATOCRIT 39.6 % (42.0-52.0); HEMOGLOBIN 12.9 g/dl (13.5-17.5); MEAN CORPUSCULAR HEMOGLOBIN 27.6 pg (27.0-33.0); MEAN CORPUSCULAR HGB CONC 32.6 g/dl (32.0-36.5); MEAN CORPUSCULAR VOLUME 84.8 fl (80.0-96.0); PLATELET COUNT, AUTOMATED 320 10^3/uL (150-450); RED BLOOD COUNT 4.67 10^6/uL (4.30-6.10); RED CELL DISTRIBUTION WIDTH 13.8 % (11.5-14.5); WHITE BLOOD COUNT 6.4 10^3/uL (4.0-10.0)
[2018-05-18 15:32] LABS: ALBUMIN 3.9 GM/DL (3.2-5.2); ALBUMIN/GLOBULIN RATIO 1.08 (1.00-1.93); ALKALINE PHOSPHATASE 114 U/L (45-117); ALT/SGPT 47 U/L (12-78); ANION GAP 4 MEQ/L (8-16); AST/SGOT 24 U/L (7-37); BILIRUBIN,TOTAL 0.3 MG/DL (0.2-1.0); BLOOD UREA NITROGEN 13 MG/DL (7-18); CALCIUM LEVEL 9.5 MG/DL (8.5-10.1); CARBON DIOXIDE LEVEL 33 MEQ/L (21-32); CHLORIDE LEVEL 104 MEQ/L (98-107); CHOLESTEROL LEVEL 216 MG/DL (<200); CHOLESTEROL RISK RATIO 4.075 (<5); CREATININE FOR GFR 0.85 MG/DL (0.70-1.30); GLOMERULAR FILTRATION RATE > 60.0 (>56); GLUCOSE, FASTING 89 MG/DL (70-100); HDL CHOLESTEROL 53 MG/DL (>40); LDL CHOLESTEROL 125 MG/DL (<100); NON-HDL-C 163 MG/DL; POTASSIUM SERUM 4.2 MEQ/L (3.5-5.1); SODIUM LEVEL 141 MEQ/L (136-145); TOTAL PROTEIN 7.5 GM/DL (6.4-8.2); TRIGLYCERIDES LEVEL 188 MG/DL (<150)
== END ==
LOC: M WUC 10:44
DX: G25.81 Restless legs syndrome (principal); E78.00 Pure hypercholesterolemia, unspecified
CPT/HCPCS: 83735

== ENCOUNTER → 2018-07-09 | Outpatient (REF) | payer OTHER ==
[~2018-07-09] MED LIST changes: -GABA600T PO; +GABA600T4 PO
== END ==
LOC: M LAB REF 09:33
PROVIDERS: ATTEND Physician Assistant
DX: L91.8 Other hypertrophic disorders of the skin (principal)

== ENCOUNTER 2018-09-27 07:37 | Outpatient (RCR) | payer OTHER | END 2018-10-01 | LOC: M PT 07:37 | PROVIDERS: ATTEND Physician Assistant Surgical | DX: S32.810D Multiple fractures of pelvis with stable disruption of pelvic ring, subsequent encounter for fracture with routine healing (principal) ==

== ENCOUNTER → 2018-10-31 | Outpatient (RCR) | payer OTHER ==
[~2018-10-31] MED LIST changes: +ASPI-1 PO; -ASPI325T PO
== END ==
LOC: M PT 10-03 07:38
PROVIDERS: ATTEND Physician Assistant Surgical
DX: S92.501D Displaced unspecified fracture of right lesser toe(s), subsequent encounter for fracture with routine healing (principal); W18.30XA Fall on same level, unspecified, initial encounter; Y92.009 Unspecified place in unspecified non-institutional (private) residence as the place of occurrence of the external cause

== ENCOUNTER → 2018-11-06 | Outpatient (REF) | payer OTHER ==
[2018-11-07 14:04] LABS: CHLAMYDIA DNA AMPLIFICATION NEGATIVE (NEGATIVE); GC DNA AMPLIFICATION NEGATIVE (NEGATIVE)
== END ==
LOC: M LAB REF 08:58
PROVIDERS: ATTEND Physician Assistant
DX: R30.0 Dysuria (principal)

== ENCOUNTER → 2018-11-29 | Outpatient (CLI) | payer OTHER ==
[2018-11-29 09:24] LABS: HEMATOCRIT 42.6 % (42.0-52.0); HEMOGLOBIN 13.8 g/dl (13.5-17.5); MEAN CORPUSCULAR HEMOGLOBIN 27.1 pg (27.0-33.0); MEAN CORPUSCULAR HGB CONC 32.4 g/dl (32.0-36.5); MEAN CORPUSCULAR VOLUME 83.5 fl (80.0-96.0); PLATELET COUNT, AUTOMATED 306 10^3/uL (150-450); WHITE BLOOD COUNT 7.7 10^3/uL (4.0-10.0)
[2018-11-29 09:48] LABS: ALBUMIN 3.8 GM/DL (3.2-5.2); ALT/SGPT 53 U/L (12-78); BILIRUBIN,TOTAL 0.3 MG/DL (0.2-1.0); BLOOD UREA NITROGEN 15 MG/DL (7-18); CALCIUM LEVEL 9.2 MG/DL (8.5-10.1); CARBON DIOXIDE LEVEL 28 MEQ/L (21-32); CHLORIDE LEVEL 107 MEQ/L (98-107); CHOLESTEROL LEVEL 197 MG/DL (<200); CHOLESTEROL RISK RATIO 3.862 (<5); CREATININE FOR GFR 0.83 MG/DL (0.70-1.30); GLOMERULAR FILTRATION RATE > 60.0 (>56); GLUCOSE, FASTING 97 MG/DL (70-100); HDL CHOLESTEROL 51 MG/DL (>40); LDL CHOLESTEROL 116 MG/DL (<100); NON-HDL-C 146 MG/DL; POTASSIUM SERUM 4.3 MEQ/L (3.5-5.1); SODIUM LEVEL 142 MEQ/L (136-145); TOTAL PROTEIN 7.3 GM/DL (6.4-8.2); TRIGLYCERIDES LEVEL 148 MG/DL (<150)
== END ==
LOC: M LAB 08:39
PROVIDERS: ATTEND Internal Medicine
DX: E78.00 Pure hypercholesterolemia, unspecified (principal); K76.0 Fatty (change of) liver, not elsewhere classified; G47.30 Sleep apnea, unspecified; Z79.899 Other long term (current) drug therapy

== ENCOUNTER 2018-11-30 09:14 | Outpatient (RCR) | payer OTHER | END 2018-12-01 | LOC: M PT 09:14 | PROVIDERS: ATTEND Physician Assistant Surgical | DX: Z51.89 Encounter for other specified aftercare (principal); S92.501D Displaced unspecified fracture of right lesser toe(s), subsequent encounter for fracture with routine healing ==

== ENCOUNTER 2018-12-28 07:32 | Outpatient (RCR) | payer OTHER | END 2018-12-31 | LOC: M PT 07:32 | PROVIDERS: ATTEND Physician Assistant Surgical | DX: S92.501D Displaced unspecified fracture of right lesser toe(s), subsequent encounter for fracture with routine healing (principal); X58.XXXD Exposure to other specified factors, subsequent encounter ==

== ENCOUNTER → 2019-01-24 | Outpatient (REF) ==
[2019-01-24 14:28] LABS: RUBELLA IgG QUALITATIVE IMMUNE (IMMUNE)
== END ==
LOC: M LAB 13:02
PROVIDERS: ATTEND Nurse Practitioner Adult Health
DX: Z02.89 Encounter for other administrative examinations (principal)

== ENCOUNTER 2019-01-30 07:43 | Outpatient (RCR) | payer OTHER | END 2019-01-31 | LOC: M PT 07:43 | PROVIDERS: ATTEND Physician Assistant Surgical | DX: S32.810D Multiple fractures of pelvis with stable disruption of pelvic ring, subsequent encounter for fracture with routine healing (principal); S92.501D Displaced unspecified fracture of right lesser toe(s), subsequent encounter for fracture with routine healing ==

== ENCOUNTER → 2019-01-31 | Outpatient (REF) | payer OTHER ==
[2019-01-31 13:00] LABS: BLOOD UREA NITROGEN 19 MG/DL (7-18); CALCIUM LEVEL 8.8 MG/DL (8.5-10.1); CARBON DIOXIDE LEVEL 29 MEQ/L (21-32); CHLORIDE LEVEL 107 MEQ/L (98-107); CREATININE FOR GFR 0.89 MG/DL (0.70-1.30); GLOMERULAR FILTRATION RATE > 60.0 (>56); GLUCOSE, FASTING 104 MG/DL (70-100); MAGNESIUM LEVEL 2.2 MG/DL (1.8-2.4); POTASSIUM SERUM 4.2 MEQ/L (3.5-5.1); SODIUM LEVEL 142 MEQ/L (136-145)
[2019-01-31 13:11] LABS: TESTOSTERONE 340 NG/DL (241-827)
== END ==
LOC: M SFHCPLAZ 08:34
PROVIDERS: ATTEND Internal Medicine
DX: Z01.818 Encounter for other preprocedural examination (principal); R23.2 Flushing

== ENCOUNTER 2019-02-22 08:25 | Outpatient (RCR) | payer OTHER | END 2019-03-03 | LOC: M PT 08:25 | PROVIDERS: ATTEND Physician Assistant Surgical | DX: S32.810D Multiple fractures of pelvis with stable disruption of pelvic ring, subsequent encounter for fracture with routine healing (principal) ==

== ENCOUNTER 2019-04-27 05:00 | Emergency (ER) | payer OTHER ==
[~2019-04-27] VITALS: Ht 170.2 cm; Wt 97.7 kg
[2019-04-27] MEDS ORDERED: EQ I1CAP PO (05:07)
[2019-04-27] MEDS ORDERED: TRAM50TA2 PO (05:07)
[2019-04-27] MEDS ORDERED: SING10TA32 PO (05:07)
[2019-04-27 06:08] LABS: BASO % 0.3 % (0.0-1.0); EOS # 0.1 10^3/uL (0.0-0.5); EOS % 1.2 % (0.0-3.0); HEMATOCRIT 36.7 % (42.0-52.0); HEMOGLOBIN 11.9 g/dl (13.5-17.5); LYMPH # 1.4 10^3/uL (1.5-5.0); LYMPH % 18.5 % (24.0-44.0); MEAN CORPUSCULAR HEMOGLOBIN 28.2 pg (27.0-33.0); MEAN CORPUSCULAR HGB CONC 32.4 g/dl (32.0-36.5); MONO # 0.8 10^3/uL (0.0-0.8); MONO % 10.1 % (0.0-5.0); NEUTROPHILS # 5.2 10^3/uL (1.5-8.5); NEUTROPHILS % 69.4 % (36.0-66.0); PLATELET COUNT, AUTOMATED 314 10^3/uL (150-450); RED BLOOD COUNT 4.22 10^6/uL (4.30-6.10); WHITE BLOOD COUNT 7.5 10^3/uL (4.0-10.0)
[2019-04-27] MEDS ORDERED: NS 1,000 ML IV ONE (06:30)
[2019-04-27] MEDS ORDERED: diphenhydrAMINE INJ 50MG/ML VIAL (J1200) IV STA (06:32)
[2019-04-27 06:35] LABS: ALBUMIN 3.3 GM/DL (3.2-5.2); ALT/SGPT 47 U/L (12-78); BILIRUBIN,TOTAL 0.6 MG/DL (0.2-1.0); BLOOD UREA NITROGEN 14 MG/DL (7-18); CARBON DIOXIDE LEVEL 29 MEQ/L (21-32); CHLORIDE LEVEL 105 MEQ/L (98-107); CREATININE FOR GFR 0.91 MG/DL (0.70-1.30); GLOMERULAR FILTRATION RATE > 60.0 (>56); GLUCOSE, FASTING 100 MG/DL (70-100); POTASSIUM SERUM 4.3 MEQ/L (3.5-5.1); SODIUM LEVEL 141 MEQ/L (136-145); TOTAL PROTEIN 6.9 GM/DL (6.4-8.2)
[2019-04-27 06:43] LABS: LIPASE 107 U/L (73-393)
[2019-04-27 06:43] LABS: APPEARANCE, URINE CLEAR (CLEAR); BACTERIA, URINE AUTO NEGATIVE (NEGATIVE); BILIRUBIN, URINE AUTO NEGATIVE (NEGATIVE); BLOOD, URINE BLOOD 1+ (NEGATIVE); COLOR, URINE YELLOW (YELLOW); GLUCOSE, URINE (UA) AUTO NEGATIVE (NEGATIVE); KETONE, URINE AUTO NEGATIVE (NEGATIVE); LEUKOCYTE ESTERASE, URINE AUTO NEGATIVE (NEGATIVE); MUCUS, URINE SMALL (NEGATIVE); NITRITE, URINE AUTO NEGATIVE (NEGATIVE); PROTEIN, URINE AUTO NEGATIVE (NEGATIVE); RBC, URINE AUTO 1 /HPF (0-3); SPECIFIC GRAVITY URINE AUTO 1.019 (1.002-1.035); SQUAMOUS EPITHELIAL CELL UR AU 0 /HPF (0-6); UROBILINOGEN, URINE AUTO 0.2 mg/dL (0.0-2.0); WBC, URINE AUTO 1 /HPF (0-3)
[2019-04-27] MEDS ORDERED: dexameTHASONE 20 MG/5 ML VIAL (J1100) IV ONE (06:45)
[2019-04-27] MEDS: READI-CAT 2 PO SCH ×2 (06:47→06:51)
[2019-04-27] MEDS ORDERED: rOPINIRole 2MG TAB PO ONE (07:00)
[2019-04-27] MEDS ORDERED: ISOVUE-370 76% 100ML VIAL (Q9967) As Ordered ONE (08:53)
--- NOTE | 2019-04-27 10:00 | REP ---
CT ABDOMEN AND PELVIS WITH ORAL AND IV CONTRAST: TECHNIQUE: Axial contrast enhanced images from the lung bases to the pubic symphysis using 100 mL Isovue 370 intravenous contrast material with multiplanar reformations. There is linear fibro atelectatic change in the lung bases of a mild degree. The liver, spleen, adrenals and pancreas are unremarkable. There is a cyst in the lower pole of the right kidney and another seen in the upper pole of the left kidney. There is no hydronephrosis. There is no abdominal aortic aneurysm. There is no adenopathy. There is no free air or free fluid. There is no bowel wall thickening. The appendix is normal. The urinary bladder is mildly distended and not optimally evaluated by appears grossly unremarkable. There is extensive metallic hardware in the bones of the pelvis previously placed for prior fractures. There is diffuse thickening of the superior aspect of the left adductor muscles without evidence of fluid collection in this region. Differential diagnosis would include post-surgical fibrosis, hematoma or infection. IMPRESSION: Diffuse enlargement of the superior left adductor muscles. There is adjacent metallic internal fixation in the pelvic bones. Differential diagnosis would include post-surgical fibrosis, hematoma or infection. No free fluid or fluid collection in the abdomen or pelvis. No other acute finding. Electronically Signed by Brando Yuan MD 04/28/2019 11:04 A
[2019-04-27 10:49] VITALS: BP 140/78
== END 2019-04-27 11:00 | disposition home or self-care (01) ==
LOC: M ED 05:00
DX: R10.32 Left lower quadrant pain (principal); E78.5 Hyperlipidemia, unspecified; Z79.899 Other long term (current) drug therapy; Z79.51 Long term (current) use of inhaled steroids; Z98.890 Other specified postprocedural states; Z91.041 Radiographic dye allergy status; Z91.018 Allergy to other foods
CPT/HCPCS: 74177; 80053; 81001; 83690; 85025; 87086; 96361; 96374; 96375; 99284; J1100; J1200; Q9967

== ENCOUNTER → 2019-05-03 | Outpatient (RCR) | payer OTHER ==
[~2019-05-03] MED LIST changes: +EQ I1CAP PO; +SING10TA32 PO; +TRAM50TA2 PO
== END ==
LOC: M PT 16:01
PROVIDERS: ATTEND Anesthesiology Pain Medicine
DX: M54.9 Dorsalgia, unspecified (principal)

== ENCOUNTER 2019-05-30 09:58 | Outpatient (RCR) | payer OTHER | END 2019-06-02 | LOC: M PT 09:58 | PROVIDERS: ATTEND Anesthesiology Pain Medicine | DX: Z47.89 Encounter for other orthopedic aftercare (principal) ==

== ENCOUNTER 2019-06-14 08:30 | Outpatient (RCR) | payer OTHER | END 2019-07-03 | LOC: M PT 08:30 | PROVIDERS: ATTEND Anesthesiology Pain Medicine | DX: Z47.89 Encounter for other orthopedic aftercare (principal); M54.16 Radiculopathy, lumbar region ==

== ENCOUNTER → 2019-06-26 | Outpatient (CLI) | payer OTHER ==
[2019-06-26 10:05] LABS: HEMATOCRIT 41.9 % (42.0-52.0); HEMOGLOBIN 13.3 g/dl (13.5-17.5); MEAN CORPUSCULAR HEMOGLOBIN 26.8 pg (27.0-33.0); MEAN CORPUSCULAR HGB CONC 31.7 g/dl (32.0-36.5); MEAN CORPUSCULAR VOLUME 84.5 fl (80.0-96.0); PLATELET COUNT, AUTOMATED 273 10^3/uL (150-450); RED BLOOD COUNT 4.96 10^6/uL (4.30-6.10); WHITE BLOOD COUNT 4.5 10^3/uL (4.0-10.0)
[2019-06-26 10:38] LABS: ALBUMIN 3.7 GM/DL (3.2-5.2); ALT/SGPT 41 U/L (12-78); BILIRUBIN,TOTAL 0.5 MG/DL (0.2-1.0); BLOOD UREA NITROGEN 16 MG/DL (7-18); CALCIUM LEVEL 9.3 MG/DL (8.5-10.1); CARBON DIOXIDE LEVEL 28 MEQ/L (21-32); CHLORIDE LEVEL 107 MEQ/L (98-107); CHOLESTEROL LEVEL 177 MG/DL (<200); CHOLESTEROL RISK RATIO 3.687 (<5); CREATININE FOR GFR 0.88 MG/DL (0.70-1.30); GLOMERULAR FILTRATION RATE > 60.0 (>56); GLUCOSE, FASTING 105 MG/DL (70-100); HDL CHOLESTEROL 48 MG/DL (>40); LDL CHOLESTEROL 106 MG/DL (<100); MAGNESIUM LEVEL 1.9 MG/DL (1.8-2.4); NON-HDL-C 129 MG/DL; POTASSIUM SERUM 4.2 MEQ/L (3.5-5.1); SODIUM LEVEL 145 MEQ/L (136-145); TOTAL PROTEIN 7.2 GM/DL (6.4-8.2); TRIGLYCERIDES LEVEL 115 MG/DL (<150)
== END ==
LOC: M WUC 08:31
PROVIDERS: ATTEND Internal Medicine
DX: K76.0 Fatty (change of) liver, not elsewhere classified (principal); Z79.899 Other long term (current) drug therapy; G47.30 Sleep apnea, unspecified; E78.00 Pure hypercholesterolemia, unspecified; G25.81 Restless legs syndrome

== ENCOUNTER → 2019-12-03 | Outpatient (REF) | payer OTHER ==
[~2019-12-03] MED LIST changes: -EQ I1CAP PO; +IBUP200C89 PO
[2019-12-03 13:24] LABS: HEMATOCRIT 41.9 % (42.0-52.0); HEMOGLOBIN 13.9 g/dl (13.5-17.5); MEAN CORPUSCULAR HEMOGLOBIN 28.4 pg (27.0-33.0); MEAN CORPUSCULAR HGB CONC 33.2 g/dl (32.0-36.5); MEAN CORPUSCULAR VOLUME 85.7 fl (80.0-96.0); PLATELET COUNT, AUTOMATED 266 10^3/uL (150-450); RED BLOOD COUNT 4.89 10^6/uL (4.30-6.10); WHITE BLOOD COUNT 5.2 10^3/uL (4.0-10.0)
[2019-12-03 13:59] LABS: ALT/SGPT 63 U/L (12-78); BILIRUBIN,TOTAL 0.5 MG/DL (0.2-1.0); BLOOD UREA NITROGEN 18 MG/DL (7-18); CARBON DIOXIDE LEVEL 28 MEQ/L (21-32); CHLORIDE LEVEL 110 MEQ/L (98-107); CHOLESTEROL LEVEL 185 MG/DL (<200); CHOLESTEROL RISK RATIO 3.936 (<5); CREATININE FOR GFR 0.95 MG/DL (0.70-1.30); GLOMERULAR FILTRATION RATE > 60.0 (>56); GLUCOSE, FASTING 102 MG/DL (70-100); HDL CHOLESTEROL 47 MG/DL (>40); LDL CHOLESTEROL 111 MG/DL (<100); NON-HDL-C 138 MG/DL; POTASSIUM SERUM 4.3 MEQ/L (3.5-5.1); SODIUM LEVEL 143 MEQ/L (136-145); TOTAL PROTEIN 7.3 GM/DL (6.4-8.2); TRIGLYCERIDES LEVEL 134 MG/DL (<150)
[2019-12-03 14:03] LABS: VITAMIN B12 LEVEL 303 PG/ML
== END ==
LOC: M PLALAB 10:21
PROVIDERS: ATTEND Internal Medicine
DX: K21.9 Gastro-esophageal reflux disease without esophagitis (principal); G47.30 Sleep apnea, unspecified; E78.00 Pure hypercholesterolemia, unspecified; K76.0 Fatty (change of) liver, not elsewhere classified

== ENCOUNTER → 2020-06-06 | Outpatient (CLI) | payer MEDICARE, OTHER ==
[2020-06-06 10:16] LABS: HEMATOCRIT 43.7 % (42.0-52.0); HEMOGLOBIN 13.9 g/dl (13.5-17.5); MEAN CORPUSCULAR HEMOGLOBIN 27.7 pg (27.0-33.0); MEAN CORPUSCULAR HGB CONC 31.8 g/dl (32.0-36.5); MEAN CORPUSCULAR VOLUME 87.1 fl (80.0-96.0); PLATELET COUNT, AUTOMATED 271 10^3/uL (150-450); RED BLOOD COUNT 5.02 10^6/uL (4.30-6.10); WHITE BLOOD COUNT 5.8 10^3/uL (4.0-10.0)
[2020-06-06 10:49] LABS: ALBUMIN 3.9 GM/DL (3.2-5.2); ALT/SGPT 69 U/L (12-78); BILIRUBIN,TOTAL 0.2 MG/DL (0.2-1.0); BLOOD UREA NITROGEN 18 MG/DL (7-18); CALCIUM LEVEL 9.1 MG/DL (8.5-10.1); CARBON DIOXIDE LEVEL 25 MEQ/L (21-32); CHLORIDE LEVEL 112 MEQ/L (98-107); CHOLESTEROL LEVEL 200 MG/DL (<200); CHOLESTEROL RISK RATIO 4.081 (<5); CREATININE FOR GFR 0.99 MG/DL (0.70-1.30); GLOMERULAR FILTRATION RATE > 60.0 (>56); GLUCOSE, FASTING 99 MG/DL (70-100); HDL CHOLESTEROL 49 MG/DL (>40); LDL CHOLESTEROL 115 MG/DL (<100); NON-HDL-C 151 MG/DL; POTASSIUM SERUM 4.8 MEQ/L (3.5-5.1); SODIUM LEVEL 143 MEQ/L (136-145); TOTAL PROTEIN 7.2 GM/DL (6.4-8.2); TRIGLYCERIDES LEVEL 178 MG/DL (<150)
== END ==
LOC: M WUC 08:09
PROVIDERS: ATTEND Internal Medicine
DX: E78.00 Pure hypercholesterolemia, unspecified (principal); G47.30 Sleep apnea, unspecified

== ENCOUNTER 2020-10-30 09:05 | Outpatient (RCR) | payer OTHER | END 2020-10-31 | LOC: M PT 09:05 | PROVIDERS: ATTEND Anesthesiology Pain Medicine | DX: M79.672 Pain in left foot (principal) ==

== ENCOUNTER 2020-11-27 08:20 | Outpatient (RCR) | payer OTHER | END 2020-12-01 | LOC: M PT 08:20 | PROVIDERS: ATTEND Anesthesiology Pain Medicine | DX: M79.605 Pain in left leg (principal) | CPT/HCPCS: 97110; 97140; G0283 ==

== ENCOUNTER 2020-12-11 08:19 | Outpatient (RCR) | payer OTHER | END 2020-12-31 | LOC: M PT 08:19 | PROVIDERS: ATTEND Anesthesiology Pain Medicine | DX: M79.605 Pain in left leg (principal) ==

== ENCOUNTER → 2020-12-11 | Outpatient (REF) | payer OTHER ==
[2020-12-11 13:41] LABS: BASO # 0.1 10^3/uL (0.0-0.2); BASO % 0.6 % (0.0-1.0); EOS # 0.1 10^3/uL (0.0-0.5); EOS % 0.8 % (0.0-3.0); HEMATOCRIT 42.5 % (42.0-52.0); HEMOGLOBIN 13.8 g/dl (13.5-17.5); LYMPH # 1.7 10^3/uL (1.5-5.0); LYMPH % 20.5 % (24.0-44.0); MEAN CORPUSCULAR HEMOGLOBIN 28.9 pg (27.0-33.0); MEAN CORPUSCULAR HGB CONC 32.5 g/dl (32.0-36.5); MEAN CORPUSCULAR VOLUME 89.1 fl (80.0-96.0); MONO # 0.7 10^3/uL (0.0-0.8); NEUTROPHILS # 5.8 10^3/uL (1.5-8.5); NEUTROPHILS % 69.3 % (36.0-66.0); PLATELET COUNT, AUTOMATED 258 10^3/uL (150-450); RED BLOOD COUNT 4.77 10^6/uL (4.30-6.10); WHITE BLOOD COUNT 8.4 10^3/uL (4.0-10.0)
[2020-12-11 14:47] LABS: ALBUMIN 3.9 GM/DL (3.2-5.2); ALT/SGPT 52 U/L (12-78); BILIRUBIN,TOTAL 0.2 MG/DL (0.2-1.0); BLOOD UREA NITROGEN 14 MG/DL (7-18); CARBON DIOXIDE LEVEL 27 MEQ/L (21-32); CHLORIDE LEVEL 111 MEQ/L (98-107); CHOLESTEROL LEVEL 191 MG/DL (<200); CHOLESTEROL RISK RATIO 3.979 (<5); CREATININE FOR GFR 0.97 MG/DL (0.70-1.30); GLOMERULAR FILTRATION RATE > 60.0 (>56); GLUCOSE, FASTING 93 MG/DL (70-100); HDL CHOLESTEROL 48 MG/DL (>40); LDL CHOLESTEROL 104 MG/DL (<100); NON-HDL-C 143 MG/DL; POTASSIUM SERUM 4.5 MEQ/L (3.5-5.1); SODIUM LEVEL 143 MEQ/L (136-145); TOTAL PROTEIN 7.2 GM/DL (6.4-8.2); TRIGLYCERIDES LEVEL 193 MG/DL (<150)
== END ==
LOC: M PLALAB 09:28
PROVIDERS: ATTEND Internal Medicine
DX: E78.00 Pure hypercholesterolemia, unspecified (principal); Z79.899 Other long term (current) drug therapy

== ENCOUNTER → 2020-12-25 | Outpatient (REF) | payer OTHER ==
[2020-12-25 17:03] LABS: MEAN CORPUSCULAR HEMOGLOBIN 28.6 pg (27.0-33.0); MEAN CORPUSCULAR HGB CONC 32.6 g/dl (32.0-36.5); MEAN CORPUSCULAR VOLUME 87.8 fl (80.0-96.0); PLATELET COUNT, AUTOMATED 282 10^3/uL (150-450); WHITE BLOOD COUNT 6.9 10^3/uL (4.0-10.0)
[2020-12-25 17:20] LABS: INR 0.9; PROTHROMBIN TIME 12.3 SECONDS (12.5-14.3)
[2020-12-25 17:21] LABS: BLOOD UREA NITROGEN 13 MG/DL (7-18); CALCIUM LEVEL 9.4 MG/DL (8.5-10.1); CARBON DIOXIDE LEVEL 26 MEQ/L (21-32); CHLORIDE LEVEL 113 MEQ/L (98-107); CREATININE FOR GFR 1.01 MG/DL (0.70-1.30); GLOMERULAR FILTRATION RATE > 60.0 (>56); GLUCOSE, FASTING 91 MG/DL (70-100); POTASSIUM SERUM 4.1 MEQ/L (3.5-5.1); SODIUM LEVEL 144 MEQ/L (136-145)
== END ==
LOC: M SFHCPLAZ 14:39
PROVIDERS: ATTEND Physician Assistant
DX: Z01.818 Encounter for other preprocedural examination (principal)

== ENCOUNTER → 2021-01-09 | Outpatient (REF) | payer MEDICARE, OTHER | LOC: M LAB REF 21:12 | PROVIDERS: ATTEND Physician Assistant | DX: R30.0 Dysuria (principal) ==

== ENCOUNTER → 2021-03-19 | Outpatient (CLI) | payer MEDICARE, OTHER ==
[2021-03-20 05:10] LABS: RUBEOLA IgG ANTIBODY 36.6 AU/mL (Immune >16.4)
== END ==
LOC: M PLALAB 08:22
PROVIDERS: ATTEND Internal Medicine
DX: Z28.3 Underimmunization status (principal)

== ENCOUNTER → 2021-05-07 | Outpatient (CLI) | payer MEDICARE, OTHER ==
[2021-05-07 10:42] LABS: ALBUMIN 3.8 GM/DL (3.2-5.2); ALT/SGPT 69 U/L (12-78); BILIRUBIN,DIRECT < 0.1 MG/DL (0.0-0.2); BILIRUBIN,TOTAL 0.2 MG/DL (0.2-1.0); TOTAL PROTEIN 7.2 GM/DL (6.4-8.2)
== END ==
LOC: M WUC 08:18
PROVIDERS: ATTEND Nurse Practitioner Family
DX: R94.5 Abnormal results of liver function studies (principal); K57.30 Diverticulosis of large intestine without perforation or abscess without bleeding

== ENCOUNTER → 2021-06-15 | Outpatient (CLI) | payer OTHER, MEDICARE ==
[2021-06-15 20:11] LABS: BASO % 0.3 % (0.0-1.0); EOS # 0.1 10^3/uL (0.0-0.5); EOS % 1.1 % (0.0-3.0); HEMATOCRIT 39.9 % (42.0-52.0); HEMOGLOBIN 12.8 g/dl (13.5-17.5); LYMPH # 1.8 10^3/uL (1.5-5.0); LYMPH % 25.7 % (24.0-44.0); MEAN CORPUSCULAR HEMOGLOBIN 28.1 pg (27.0-33.0); MEAN CORPUSCULAR HGB CONC 32.1 g/dl (32.0-36.5); MEAN CORPUSCULAR VOLUME 87.5 fl (80.0-96.0); MONO # 0.5 10^3/uL (0.0-0.8); MONO % 6.6 % (2.0-8.0); NEUTROPHILS # 4.6 10^3/uL (1.5-8.5); NEUTROPHILS % 65.4 % (36.0-66.0); PLATELET COUNT, AUTOMATED 311 10^3/uL (150-450); RED BLOOD COUNT 4.56 10^6/uL (4.30-6.10)
[2021-06-15 20:27] LABS: ALBUMIN 4.1 GM/DL (3.2-5.2); ALT/SGPT 59 U/L (12-78); BILIRUBIN,TOTAL 0.4 MG/DL (0.2-1.0); BLOOD UREA NITROGEN 18 MG/DL (7-18); CALCIUM LEVEL 9.2 MG/DL (8.5-10.1); CARBON DIOXIDE LEVEL 27 MEQ/L (21-32); CHLORIDE LEVEL 111 MEQ/L (98-107); CHOLESTEROL LEVEL 158 MG/DL (<200); CHOLESTEROL RISK RATIO 2.981 (<5); CREATININE FOR GFR 0.98 MG/DL (0.70-1.30); GLOMERULAR FILTRATION RATE > 60.0 (>56); GLUCOSE, FASTING 77 MG/DL (70-100); HDL CHOLESTEROL 53 MG/DL (>40); LDL CHOLESTEROL 87 MG/DL (<100); NON-HDL-C 105 MG/DL; POTASSIUM SERUM 3.9 MEQ/L (3.5-5.1); SODIUM LEVEL 145 MEQ/L (136-145); TOTAL PROTEIN 7.5 GM/DL (6.4-8.2); TRIGLYCERIDES LEVEL 89 MG/DL (<150)
== END ==
LOC: M WUC 15:52
PROVIDERS: ATTEND Internal Medicine
DX: E78.00 Pure hypercholesterolemia, unspecified (principal); G47.30 Sleep apnea, unspecified

== ENCOUNTER 2021-07-01 07:00 | Outpatient (RCR) | payer OTHER, MEDICARE | END 2021-07-03 | LOC: M PT 07:00 | PROVIDERS: ATTEND Anesthesiology Pain Medicine | DX: M79.672 Pain in left foot (principal) ==

== ENCOUNTER 2021-07-30 07:00 | Outpatient (RCR) | payer OTHER, MEDICARE | END 2021-08-03 | LOC: M PT 07:00 | PROVIDERS: ATTEND Anesthesiology Pain Medicine | DX: M16.11 Unilateral primary osteoarthritis, right hip (principal); M79.672 Pain in left foot ==

== ENCOUNTER 2021-08-27 07:00 | Outpatient (RCR) | payer OTHER, MEDICARE | END 2021-08-31 | LOC: M PT 07:00 | PROVIDERS: ATTEND Anesthesiology Pain Medicine | DX: M16.11 Unilateral primary osteoarthritis, right hip (principal); M79.672 Pain in left foot ==

== ENCOUNTER 2021-09-10 07:00 | Outpatient (RCR) | payer MEDICARE, OTHER | END 2021-10-01 | LOC: M PT 07:00 | PROVIDERS: ATTEND Anesthesiology Pain Medicine | DX: M79.672 Pain in left foot (principal); M16.11 Unilateral primary osteoarthritis, right hip ==

== ENCOUNTER → 2021-11-12 | Outpatient (REF) | payer MEDICARE, OTHER | LOC: M SFHCDERM 13:51 | PROVIDERS: ATTEND Physician Assistant | DX: D23.62 Other benign neoplasm of skin of left upper limb, including shoulder (principal) ==

== ENCOUNTER → 2021-12-23 | Outpatient (CLI) | payer MEDICARE, OTHER ==
[2021-12-23 10:57] LABS: BASO % 0.5 % (0.0-1.0); EOS # 0.1 10^3/uL (0.0-0.5); EOS % 1.8 % (0.0-3.0); HEMATOCRIT 40.6 % (42.0-52.0); HEMOGLOBIN 13.2 g/dl (13.5-17.5); LYMPH # 1.5 10^3/uL (1.5-5.0); LYMPH % 27.8 % (24.0-44.0); MEAN CORPUSCULAR HEMOGLOBIN 28.4 pg (27.0-33.0); MEAN CORPUSCULAR HGB CONC 32.5 g/dl (32.0-36.5); MEAN CORPUSCULAR VOLUME 87.3 fl (80.0-96.0); MONO # 0.5 10^3/uL (0.0-0.8); MONO % 9.1 % (2.0-8.0); NEUTROPHILS # 3.3 10^3/uL (1.5-8.5); NEUTROPHILS % 59.7 % (36.0-66.0); PLATELET COUNT, AUTOMATED 256 10^3/uL (150-450); RED BLOOD COUNT 4.65 10^6/uL (4.30-6.10); WHITE BLOOD COUNT 5.5 10^3/uL (4.0-10.0)
[2021-12-23 11:27] LABS: ALBUMIN 3.9 GM/DL (3.2-5.2); ALT/SGPT 49 U/L (12-78); BILIRUBIN,TOTAL 0.3 MG/DL (0.2-1.0); BLOOD UREA NITROGEN 19 MG/DL (7-18); CALCIUM LEVEL 9.2 MG/DL (8.5-10.1); CARBON DIOXIDE LEVEL 27 MEQ/L (21-32); CHLORIDE LEVEL 113 MEQ/L (98-107); CREATININE FOR GFR 0.98 MG/DL (0.70-1.30); GLOMERULAR FILTRATION RATE > 60.0 (>56); GLUCOSE, FASTING 100 MG/DL (70-100); POTASSIUM SERUM 4.1 MEQ/L (3.5-5.1); SODIUM LEVEL 146 MEQ/L (136-145)
[2021-12-23 12:23] LABS: VITAMIN B12 LEVEL 538 PG/ML
[2021-12-23 12:27] LABS: FOLATE 9.2 NG/ML
== END ==
LOC: M PLALAB 08:36
PROVIDERS: ATTEND Internal Medicine
DX: G47.30 Sleep apnea, unspecified (principal); K76.0 Fatty (change of) liver, not elsewhere classified; E53.8 Deficiency of other specified B group vitamins

== ENCOUNTER → 2022-02-10 | Outpatient (CLI) | payer MEDICARE, OTHER | LOC: M WUC 08:31 | PROVIDERS: ATTEND Nurse Practitioner Family | DX: R94.5 Abnormal results of liver function studies (principal); K21.9 Gastro-esophageal reflux disease without esophagitis; K76.0 Fatty (change of) liver, not elsewhere classified ==

== ENCOUNTER → 2022-05-26 | Outpatient (REF) | payer MEDICARE, OTHER | LOC: M SFHCDERM 13:01 | PROVIDERS: ATTEND Nurse Practitioner Family | DX: L82.1 Other seborrheic keratosis (principal) ==

== ENCOUNTER → 2022-10-14 | Outpatient (CLI) | payer MEDICARE, OTHER ==
[~2022-10-14] MED LIST changes: +MONT-5 PO; -SING10TA32 PO
[2022-10-14 11:16] LABS: BASO % 0.5 % (0.0-1.0); EOS # 0.1 10^3/uL (0.0-0.5); EOS % 2.1 % (0.0-3.0); HEMATOCRIT 43.7 % (42.0-52.0); HEMOGLOBIN 14.5 g/dl (13.5-17.5); LYMPH % 32.7 % (24.0-44.0); MEAN CORPUSCULAR HEMOGLOBIN 28.4 pg (27.0-33.0); MEAN CORPUSCULAR HGB CONC 33.2 g/dl (32.0-36.5); MEAN CORPUSCULAR VOLUME 85.7 fl (80.0-96.0); MONO # 0.6 10^3/uL (0.0-0.8); MONO % 9.2 % (2.0-8.0); NEUTROPHILS # 3.3 10^3/uL (1.5-8.5); NEUTROPHILS % 54.5 % (36.0-66.0); PLATELET COUNT, AUTOMATED 268 10^3/uL (150-450); WHITE BLOOD COUNT 6.1 10^3/uL (4.0-10.0)
[2022-10-14 11:18] LABS: ALBUMIN 3.8 G/DL (3.2-5.2); ALKALINE PHOSPHATASE 102 U/L (46-116); ALT/SGPT 59 U/L (7.0-40); AST/SGOT 29 U/L (<34); BILIRUBIN,TOTAL 0.4 MG/DL (0.3-1.2); BLOOD UREA NITROGEN 18 MG/DL (9-23); CARBON DIOXIDE LEVEL 26 MMOL/L (20-31); CHLORIDE LEVEL 110 MMOL/L (98-107); CHOLESTEROL LEVEL 149 MG/DL (<200); CHOLESTEROL RISK RATIO 3.36 (<5); CREATININE FOR GFR 1.07 MG/DL (0.70-1.30); GLOMERULAR FILTRATION RATE > 60.0 (>56); GLUCOSE, FASTING 102 MG/DL (60-100); HDL CHOLESTEROL 44.3 MG/DL (>40); LDL CHOLESTEROL 57.1 MG/DL (<100); NON-HDL-C 104.7 MG/DL; POTASSIUM SERUM 4.1 MMOL/L (3.5-5.1); SODIUM LEVEL 142 MMOL/L (136-145); TOTAL PROTEIN 6.7 G/DL (5.7-8.2); TRIGLYCERIDES LEVEL 238 MG/DL (<150)
[2022-10-14 11:20] LABS: THYROID STIMULATING HORMONE 1.771 uIU/ML (0.55-4.78)
[2022-10-14 11:21] LABS: VITAMIN B12 LEVEL 792 PG/ML (211-911)
[2022-10-14 11:42] LABS: FOLATE 10.61 NG/ML (>5.4)
== END ==
LOC: M PLALAB 08:00
PROVIDERS: ATTEND Internal Medicine Hematology
DX: E78.00 Pure hypercholesterolemia, unspecified (principal); E53.8 Deficiency of other specified B group vitamins; G25.81 Restless legs syndrome; K76.0 Fatty (change of) liver, not elsewhere classified; G47.30 Sleep apnea, unspecified; Z12.5 Encounter for screening for malignant neoplasm of prostate
CPT/HCPCS: 36415; 80053; 80061; 82607; 82746; 84443; 85025; G0103

== ENCOUNTER → 2022-10-29 | Outpatient (CLI) | payer MEDICARE, OTHER | LOC: M WUC 12:11 | PROVIDERS: ATTEND Allergy & Immunology Allergy | DX: R05.9 Cough, unspecified (principal); M48.14 Ankylosing hyperostosis [Forestier], thoracic region ==

== ENCOUNTER → 2022-11-24 | Outpatient (CLI) | payer MEDICARE, OTHER ==
[~2022-11-24] MED LIST changes: +METHACHOLINE KIT INH ONE
== END ==
LOC: M CARPUL 10:44
PROVIDERS: ATTEND Allergy & Immunology Allergy
DX: R05.9 Cough, unspecified (principal)
CPT/HCPCS: 94070; J7674

== ENCOUNTER → 2022-12-01 | Outpatient (RCR) | payer OTHER ==
[~2022-12-01] MED LIST changes: -METHACHOLINE KIT INH ONE
== END ==
LOC: M PT 07:35
PROVIDERS: ATTEND Physician Assistant Surgical
DX: M79.672 Pain in left foot (principal); M25.551 Pain in right hip

== ENCOUNTER 2022-12-30 07:00 | Outpatient (RCR) | payer OTHER | END 2022-12-31 | LOC: M PT 07:00 | PROVIDERS: ATTEND Physician Assistant Surgical | DX: M79.672 Pain in left foot (principal); M25.551 Pain in right hip ==

== ENCOUNTER → 2023-01-07 | Outpatient (CLI) | payer MEDICARE, OTHER ==
[2023-01-07 17:33] LABS: BASO # 0.1 10^3/uL (0.0-0.2); BASO % 0.6 % (0.0-1.0); EOS # 0.1 10^3/uL (0.0-0.5); EOS % 1.4 % (0.0-3.0); HEMATOCRIT 44.3 % (42.0-52.0); HEMOGLOBIN 14.5 g/dl (13.5-17.5); LYMPH # 2.1 10^3/uL (1.5-5.0); LYMPH % 23.8 % (24.0-44.0); MEAN CORPUSCULAR HEMOGLOBIN 28.4 pg (27.0-33.0); MEAN CORPUSCULAR HGB CONC 32.7 g/dl (32.0-36.5); MEAN CORPUSCULAR VOLUME 86.9 fl (80.0-96.0); MONO # 0.7 10^3/uL (0.0-0.8); MONO % 8.3 % (2.0-8.0); NEUTROPHILS # 5.5 10^3/uL (1.5-8.5); NEUTROPHILS % 62.3 % (36.0-66.0); PLATELET COUNT, AUTOMATED 324 10^3/uL (150-450); WHITE BLOOD COUNT 8.9 10^3/uL (4.0-10.0)
[2023-01-07 17:45] LABS: INR 0.98; PROTHROMBIN TIME 13.2 SECONDS (12.5-14.5)
[2023-01-07 17:46] LABS: PARTIAL THROMBOPLASTIN TIME 29.1 SECONDS (24.8-34.2)
[2023-01-07 17:58] LABS: C REACTIVE PROTEIN QUANTITATIV < 0.40 MG/DL (<1.0)
[2023-01-07 17:59] LABS: HEPATITIS B SURFACE ANTIBODY NEGATIVE (POSITIVE)
[2023-01-07 18:00] LABS: ERYTHROCYTE SEDIMENTATION RATE 21 mm/hr (0-20)
[2023-01-07 18:10] LABS: HEPATITIS B SURFACE ANTIGEN NEGATIVE (NEGATIVE)
[2023-01-07 18:32] LABS: HEPATITIS C VIRUS ABY INDEX 0.08 INDEX (<0.8)
[2023-01-12 16:09] LABS: AFP TUMOR TOTAL 2.8 ng/mL (0.0-8.4); ANA (HEP2) Negative (.); ANTI-MITOCHONDRIAL ANTIBODY <20.0 Units (0.0-20.0); HEPATITIS A IgG TOTAL Negative (Negative)
== END ==
LOC: M PLALAB 15:11
PROVIDERS: ATTEND Physician Assistant Medical
DX: J18.9 Pneumonia, unspecified organism (principal); K76.0 Fatty (change of) liver, not elsewhere classified

== ENCOUNTER → 2023-05-24 | Outpatient (CLI) | payer MEDICARE, OTHER ==
[~2023-05-24] MED LIST changes: +ALBU2.5V10 INH; +AMIT10TA7 PO; +ATOR1TAB21 PO; +BARIUM SULFATE 700 MG TABLET (E-Z-DISK) As Ordered ONE; +CYAN100081 PO; +E-Z-PAQUE 96% w/w SUSP 176GM BTL As Ordered ONE; +ESOM40CA35 PO; +MYRB50TA PO; +ROPI2TAB46 PO; +ROPI4TAB21 PO; +TOPI-254 PO; +VARIBAR NECTAR 40% w/v 240ML SUSP BTL As Ordered ONE; +VARIBAR PUDDING 40% w/v 230ML TUBE As Ordered ONE; +ZOLP10TA2 PO
== END ==
LOC: M RAD 11:50
PROVIDERS: ATTEND Internal Medicine Critical Care Medicine
DX: R13.10 Dysphagia, unspecified (principal)

== ENCOUNTER → 2023-06-22 | Outpatient (REF) | payer MEDICARE, OTHER ==
[~2023-06-22] MED LIST changes: -BARIUM SULFATE 700 MG TABLET (E-Z-DISK) As Ordered ONE; -E-Z-PAQUE 96% w/w SUSP 176GM BTL As Ordered ONE; +TOPI-21 PO; -TOPI-254 PO; -VARIBAR NECTAR 40% w/v 240ML SUSP BTL As Ordered ONE; -VARIBAR PUDDING 40% w/v 230ML TUBE As Ordered ONE
[2023-06-22 17:55] LABS: ALBUMIN 4.1 G/DL (3.2-5.2); BILIRUBIN,DIRECT 0.1 MG/DL (<0.4); BILIRUBIN,TOTAL 0.4 MG/DL (0.3-1.2)
== END ==
LOC: M LABWUC 16:33
PROVIDERS: ATTEND Internal Medicine Gastroenterology
DX: R94.5 Abnormal results of liver function studies (principal); K76.0 Fatty (change of) liver, not elsewhere classified; Z80.0 Family history of malignant neoplasm of digestive organs; Z86.010 Personal history of colon polyps; R05.9 Cough, unspecified

== ENCOUNTER → 2023-07-07 | Outpatient (REF) | payer MEDICARE, OTHER | LOC: M LAB REF 09:56 | PROVIDERS: ATTEND Internal Medicine Critical Care Medicine | DX: R05.3 Chronic cough (principal) ==

== ENCOUNTER → 2023-07-21 | Outpatient (REF) | payer MEDICARE, OTHER | LOC: M LAB REF 12:14 | PROVIDERS: ATTEND Internal Medicine Critical Care Medicine | DX: R05.3 Chronic cough (principal) ==

== ENCOUNTER → 2023-08-08 | Outpatient (CLI) | payer MEDICARE, OTHER | LOC: M SOG 07:58 | PROVIDERS: ATTEND Physician Assistant | DX: M79.645 Pain in left finger(s) (principal); M19.042 Primary osteoarthritis, left hand ==

== ENCOUNTER → 2023-08-27 | Outpatient (REF) | payer MEDICARE, OTHER | LOC: M LAB REF 07:54 | PROVIDERS: ATTEND Internal Medicine Critical Care Medicine | DX: R05.3 Chronic cough (principal) ==

== ENCOUNTER → 2023-09-26 | Outpatient (CLI) | payer MEDICARE, OTHER | LOC: M PLAIMG 11:10 | PROVIDERS: ATTEND Internal Medicine Critical Care Medicine | DX: R05.3 Chronic cough (principal); K76.0 Fatty (change of) liver, not elsewhere classified; Q44.6 Cystic disease of liver ==

== ENCOUNTER → 2023-10-26 | Outpatient (CLI) | payer MEDICARE, OTHER ==
[2023-10-26 11:19] LABS: HEMOGLOBIN 13.2 g/dl (13.5-17.5); MEAN CORPUSCULAR HEMOGLOBIN 29.1 pg (27.0-33.0); MEAN CORPUSCULAR HGB CONC 32.2 g/dl (32.0-36.5); MEAN CORPUSCULAR VOLUME 90.5 fl (80.0-96.0); PLATELET COUNT, AUTOMATED 326 10^3/uL (150-450); RED BLOOD COUNT 4.53 10^6/uL (4.30-6.10)
[2023-10-26 11:32] LABS: HEMOGLOBIN A1c 5.8 % (4.0-6.0)
[2023-10-26 11:54] LABS: ALBUMIN 3.6 G/DL (3.2-5.2); ALKALINE PHOSPHATASE 138 U/L (46-116); ALT/SGPT 124 U/L (7.0-40); AST/SGOT 74 U/L (<34); BILIRUBIN,TOTAL 0.5 MG/DL (0.3-1.2); BLOOD UREA NITROGEN 20 MG/DL (9-23); CALCIUM LEVEL 9.2 MG/DL (8.5-10.1); CARBON DIOXIDE LEVEL 31 MMOL/L (20-31); CHLORIDE LEVEL 106 MMOL/L (98-107); CHOLESTEROL LEVEL 142 MG/DL (<200); CHOLESTEROL RISK RATIO 3.39 (<5); CREATININE FOR GFR 0.95 MG/DL (0.70-1.30); FREE T4 1.08 NG/DL (0.89-1.76); GLOMERULAR FILTRATION RATE > 60.0 (>56); GLUCOSE, FASTING 104 MG/DL (60-100); HDL CHOLESTEROL 41.8 MG/DL (>40); LDL CHOLESTEROL 81.8 MG/DL (<100); NON-HDL-C 100.2 MG/DL; POTASSIUM SERUM 4.6 MMOL/L (3.5-5.1); PSA SCREENING 2.74 NG/ML (< 4.00); SODIUM LEVEL 143 MMOL/L (136-145); TOTAL PROTEIN 6.7 G/DL (5.7-8.2); TRIGLYCERIDES LEVEL 92 MG/DL (<150); VITAMIN B12 LEVEL 957 PG/ML (211-911)
[2023-10-26 11:56] LABS: TOTAL 25(OH) VITAMIN D 14.1 NG/ML (20.0-100.0)
[2023-10-26 12:23] LABS: CREATININE, URINE 343.2 MG/DL; MAU/CREAT RATIO 26.2 MCG/MG (0.0-30.0)
== END ==
LOC: M PLALAB 08:17
PROVIDERS: ATTEND Internal Medicine Hematology
DX: K76.0 Fatty (change of) liver, not elsewhere classified (principal); N30.00 Acute cystitis without hematuria; G47.30 Sleep apnea, unspecified; Z79.899 Other long term (current) drug therapy; Z12.5 Encounter for screening for malignant neoplasm of prostate
CPT/HCPCS: 36415; 80053; 80061; 82043; 82306; 82607; 83036; 84439; 84443; 85027; 86140; 87086; G0103

== ENCOUNTER → 2023-11-25 | Outpatient (CLI) | payer MEDICARE, OTHER ==
[2023-11-25 13:30] LABS: BASO % 0.6 % (0.0-1.0); EOS # 0.1 10^3/uL (0.0-0.5); EOS % 1.6 % (0.0-3.0); HEMATOCRIT 42.9 % (42.0-52.0); LYMPH # 1.6 10^3/uL (1.5-5.0); LYMPH % 23.5 % (24.0-44.0); MEAN CORPUSCULAR HEMOGLOBIN 28.6 pg (27.0-33.0); MEAN CORPUSCULAR HGB CONC 32.6 g/dl (32.0-36.5); MEAN CORPUSCULAR VOLUME 87.6 fl (80.0-96.0); MONO # 0.7 10^3/uL (0.0-0.8); NEUTROPHILS # 4.5 10^3/uL (1.5-8.5); NEUTROPHILS % 63.6 % (36.0-66.0); PLATELET COUNT, AUTOMATED 227 10^3/uL (150-450)
[2023-11-25 13:35] LABS: ERYTHROCYTE SEDIMENTATION RATE 10 mm/hr (0-20)
== END ==
LOC: M LAB 12:57
PROVIDERS: ATTEND Optometrist
DX: M31.6 Other giant cell arteritis (principal)

== ENCOUNTER → 2024-03-21 | Outpatient (CLI) | payer MEDICARE, OTHER ==
[~2024-03-21] MED LIST changes: +GABA-1490 PO; -GABA600T4 PO
== END ==
LOC: M RAD 07:37
PROVIDERS: ATTEND Internal Medicine Critical Care Medicine
DX: R05.3 Chronic cough (principal)

== ENCOUNTER → 2024-04-26 | Outpatient (CLI) | payer MEDICARE, OTHER ==
[2024-04-26 11:36] LABS: BASO % 0.5 % (0.0-1.0); EOS # 0.1 10^3/uL (0.0-0.5); EOS % 1.9 % (0.0-3.0); HEMATOCRIT 40.6 % (42.0-52.0); HEMOGLOBIN 13.6 g/dl (13.5-17.5); LYMPH # 1.6 10^3/uL (1.5-5.0); LYMPH % 25.2 % (24.0-44.0); MEAN CORPUSCULAR HEMOGLOBIN 28.7 pg (27.0-33.0); MEAN CORPUSCULAR HGB CONC 33.5 g/dl (32.0-36.5); MEAN CORPUSCULAR VOLUME 85.7 fl (80.0-96.0); MONO # 0.6 10^3/uL (0.0-0.8); MONO % 9.7 % (2.0-8.0); NEUTROPHILS # 3.9 10^3/uL (1.5-8.5); NEUTROPHILS % 61.4 % (36.0-66.0); PLATELET COUNT, AUTOMATED 271 10^3/uL (150-450); RED BLOOD COUNT 4.74 10^6/uL (4.30-6.10); WHITE BLOOD COUNT 6.4 10^3/uL (4.0-10.0)
[2024-04-26 11:47] LABS: HEMOGLOBIN A1c 5.8 % (4.0-6.0)
[2024-04-26 12:07] LABS: CREATININE, URINE 207.3 MG/DL; MAU/CREAT RATIO 1.4 MCG/MG (0.0-30.0)
[2024-04-26 12:12] LABS: ALKALINE PHOSPHATASE 100 U/L (46-116); ALT/SGPT 63 U/L (7.0-40); AST/SGOT 29 U/L (<34); BILIRUBIN,DIRECT 0.1 MG/DL (<0.4); BILIRUBIN,TOTAL 0.4 MG/DL (0.3-1.2); BLOOD UREA NITROGEN 15 MG/DL (9-23); CALCIUM LEVEL 9.6 MG/DL (8.5-10.1); CARBON DIOXIDE LEVEL 25 MMOL/L (20-31); CHLORIDE LEVEL 112 MMOL/L (98-107); CHOLESTEROL LEVEL 169 MG/DL (<200); CREATININE FOR GFR 0.98 MG/DL (0.70-1.30); FREE T4 1.01 NG/DL (0.89-1.76); GLOMERULAR FILTRATION RATE > 60.0 (>56); GLUCOSE, FASTING 101 MG/DL (60-100); HDL CHOLESTEROL 44.4 MG/DL (>40); LDL CHOLESTEROL 90.4 MG/DL (<100); NON-HDL-C 124.6 MG/DL; POTASSIUM SERUM 4.2 MMOL/L (3.5-5.1); SODIUM LEVEL 145 MMOL/L (136-145); TOTAL 25(OH) VITAMIN D 35.8 NG/ML (20.0-100.0); TOTAL PROTEIN 6.8 G/DL (5.7-8.2); TRIGLYCERIDES LEVEL 171 MG/DL (<150)
[2024-04-26 12:13] LABS: VITAMIN B12 LEVEL 1046 PG/ML (211-911)
== END ==
LOC: M PLALAB 08:22
PROVIDERS: ATTEND Internal Medicine Hematology
DX: R78.89 Finding of other specified substances, not normally found in blood (principal); K76.0 Fatty (change of) liver, not elsewhere classified; Z79.899 Other long term (current) drug therapy

== ENCOUNTER → 2024-05-04 | Outpatient (REF) | payer MEDICARE, OTHER | LOC: M LABWUC 10:20 | PROVIDERS: ATTEND Internal Medicine Hematology | DX: K76.0 Fatty (change of) liver, not elsewhere classified (principal) ==

== ENCOUNTER 2024-07-02 08:30 | Outpatient (RCR) | payer MEDICARE, OTHER | END 2024-07-03 | LOC: M PT 08:30 | PROVIDERS: ATTEND Physician Assistant Surgical | DX: M25.512 Pain in left shoulder (principal); M67.912 Unspecified disorder of synovium and tendon, left shoulder ==

== ENCOUNTER → 2024-07-05 | Outpatient (REF) | payer MEDICARE, OTHER ==
[2024-07-05 13:57] LABS: PERCENT SATURATION 17.5 % (19.7-50.0)
[2024-07-05 14:00] LABS: FERRITIN 96.4 NG/ML (10.5-307.3)
== END ==
LOC: M LAB REF 12:52
PROVIDERS: ATTEND Internal Medicine
DX: K76.0 Fatty (change of) liver, not elsewhere classified (principal); R68.82 Decreased libido

== ENCOUNTER 2024-08-02 08:23 | Outpatient (RCR) | payer MEDICARE, OTHER | END 2024-08-03 | LOC: M PT 08:23 | PROVIDERS: ATTEND Physician Assistant Surgical | DX: M25.512 Pain in left shoulder (principal); M67.912 Unspecified disorder of synovium and tendon, left shoulder ==

== ENCOUNTER → 2025-01-22 | Outpatient (REF) | payer MEDICARE, OTHER ==
[~2025-01-22] MED LIST changes: +AMIT10TA11 PO; -AMIT10TA7 PO
[2025-01-22 19:13] LABS: VITAMIN B12 LEVEL 473.0 PG/ML (211-911)
[2025-01-22 19:14] LABS: IRON (FE) 75.0 UG/DL (65-175); PERCENT SATURATION 22.8 % (19.7-50.0)
== END ==
LOC: M LAB REF 17:22
PROVIDERS: ATTEND Internal Medicine
DX: D64.9 Anemia, unspecified (principal)

== ENCOUNTER → 2025-04-02 | Outpatient (RCR) | payer MEDICARE, OTHER ==
[~2025-04-02] MED LIST changes: +ZOLP10TA11 PO; -ZOLP10TA2 PO
== END ==
LOC: M PT 03-26 06:46
PROVIDERS: ATTEND Orthopaedic Surgery
DX: Z98.890 Other specified postprocedural states (principal)

== ENCOUNTER 2025-05-02 12:49 | Outpatient (RCR) | payer MEDICARE, OTHER | END 2025-05-03 | LOC: M PT 12:49 | PROVIDERS: ATTEND Orthopaedic Surgery | DX: Z98.890 Other specified postprocedural states (principal) ==

== ENCOUNTER 2025-05-28 07:00 | Outpatient (RCR) | payer MEDICARE, OTHER | END 2025-06-02 | LOC: M PT 07:00 | PROVIDERS: ATTEND Orthopaedic Surgery | DX: Z98.890 Other specified postprocedural states (principal); Z47.89 Encounter for other orthopedic aftercare ==

== ENCOUNTER 2025-07-02 07:00 | Outpatient (RCR) | payer MEDICARE, OTHER | END 2025-07-03 | LOC: M PT 07:00 | PROVIDERS: ATTEND Orthopaedic Surgery | DX: Z98.890 Other specified postprocedural states (principal); Z47.89 Encounter for other orthopedic aftercare ==